=== PATIENT | female | born 1990 | race Caucasian/White ===

== ENCOUNTER 2016-08-19 09:01 | Emergency (ER) | payer OTHER ==
[~2016-08-19] VITALS: Ht 162.6 cm; Wt 109.0 kg
[~2016-08-19 09:01] MED LIST: FAMO20TA18 PO; GABA300C16 PO; MAG355OR15 PO; OXYC-284 PO; PANT20TA3 PO; PANT40TA3 PO; PERCOCET PO; SUCR1TAB56 PO
[2016-08-19 09:04] VITALS: Ht 162.6 cm; Wt 109.0 kg
[2016-08-19] MEDS ORDERED: ONDANSETRON 4 MG INJ IM STA (09:41)
[2016-08-19] MEDS ORDERED: LIDOCAINE/MYLANTA 40 ML BTL PO ONE (10:00)
[2016-08-19] MEDS ORDERED: PANTOPRAZOLE (EC) 40 MG TAB PO ONE (10:00)
[2016-08-19] MEDS ORDERED: HYDROmorphONE 1 MG/ML SYG IV STA (10:18)
[2016-08-19] MEDS ORDERED: LORAZEPAM 2 MG INJ IM ONE (10:30)
[2016-08-19 10:59] LABS: ADD SCAN DIFF NO
--- NOTE | 2016-08-19 11:06 | RADRPT ---
PROCEDURE: XR Chest. CLINICAL INDICATION: chest pain TECHNIQUE: Single frontal view of the chest was obtained COMPARISON: 11/15/2014 FINDINGS: The heart and mediastinum are within normal limits. The lungs are clear. There is no pleural effusion or pneumothorax. IMPRESSION: No definite abnormalities are identified. RPTAT:AAJJ Lance Spaulding Physician Date Time Electronically viewed and signed by Lance Spaulding Physician on 08/19/2016 11:06 CARRIE/
[2016-08-19 11:07] LABS: BASOPHIL # 0.1 10^3/ul (0.0-0.1); BASOPHILS % 0.4 % (0.0-2.0); EOSINOPHILS % 0.2 % (0.0-7.0); HEMATOCRIT 42.2 % (37.0-47.0); HEMOGLOBIN 14.3 g/dl (12.0-16.0); LYMPHOCYTES % 15.1 % (15.0-51.0); MEAN CORPUSCULAR HEMOGLOBIN 31.3 pg (29.0-33.0); MEAN CORPUSCULAR HGB CONC 33.9 g/dl (32.0-37.0); MEAN CORPUSCULAR VOLUME 92.3 fl (82.0-101.0); MEAN PLATELET VOLUME 11.7 fl (7.4-10.4); MONOCYTE # 0.5 10^3/ul (0.3-0.9); MONOCYTES % 4.1 % (0.0-11.0); NEUTROPHIL # 10.4 10^3/ul (1.6-7.5); NEUTROPHILS % 79.8 % (39.0-77.0); PLATELET COUNT 272 10^3/UL (140-415); RED BLOOD COUNT 4.57 10^6/ul (4.20-5.40); RED CELL DISTRIBUTION WIDTH 12.5 % (11.5-14.5); WHITE BLOOD COUNT 13.1 10^3/ul (4.8-10.8)
[2016-08-19 11:27] LABS: INR 1.01; PROTIME 13.3 Sec (12.2-14.2)
[2016-08-19 11:29] LABS: ALANINE AMINOTRANSFERASE 35 IU/L (13-69); ALBUMIN 4.8 g/dl (3.3-4.9); ALBUMIN/GLOBULIN RATIO 1.29; ALKALINE PHOSPHATASE 103 IU/L (42-121); ANION GAP 16 (8-16); ASPARTATE AMINO TRANSFERASE 21 IU/L (15-46); BILIRUBIN,INDIRECT 0.3 mg/dl (0-1.1); BILIRUBIN,TOTAL 0.3 mg/dl (0.2-1.3); BLOOD UREA NITROGEN 9 mg/dl (7-20); CALCIUM 9.6 mg/dl (8.4-10.2); CARBON DIOXIDE 28 mmol/L (21-31); CHLORIDE 100 mmol/L (97-110); CREATININE 0.87 mg/dl (0.44-1.00); GLUCOSE 109 mg/dl (70-220); POTASSIUM 3.8 mmol/L (3.5-5.1); SODIUM 140 mmol/L (135-144); TOTAL PROTEIN 8.5 g/dl (6.1-8.1)
[2016-08-19] MEDS ORDERED: LORAZEPAM 2 MG INJ IV ONE (11:30)
[2016-08-19 11:32] LABS: PARTIAL THROMBOPLASTIN TIME 25.6 Sec (25.0-35.0)
[2016-08-19 11:44] LABS: TROPONIN-I < 0.012 ng/ml (0.00-0.12)
[2016-08-19 12:02] LABS: ADD UMIC NO; URINE BILIRUBIN (Dip) NEGATIVE (NEGATIVE); URINE BLOOD (Dip) NEGATIVE (NEGATIVE); URINE COLOR LT. YELLOW (YELLOW); URINE GLUCOSE (Dip) NEGATIVE (NEGATIVE); URINE KETONES (Dip) NEGATIVE (NEGATIVE); URINE LEUKOCYTE ESTERASE (Dip) NEGATIVE (NEGATIVE); URINE NITRITE (Dip) NEGATIVE (NEGATIVE); URINE TOTAL PROTEIN (Dip) NEGATIVE (NEGATIVE); URINE UROBILINOGEN (Dip) 0.2 E.U./dL (0.1-1.0)
[2016-08-19] MEDS ORDERED: SOD CHLORIDE 0.9% 100 ML ONE (12:10)
[2016-08-19] MEDS ORDERED: IOHEXOL 100 ML ONE (12:10)
--- NOTE | 2016-08-19 12:34 | RADRPT ---
PROCEDURE: CTA Chest. CLINICAL INDICATION: Chest pain TECHNIQUE: The study was performed utilizing a multidetector CT scanner. Direct spiral 1 mm axial sections were obtained from the thoracic inlet to the upper abdomen with the use of 100 cc of Omnipa que 350 nonionic intravenous contrast material and reformatted at 3 mm. Coronal and sagittal reforma tions were obtained along with 3-D reconstructions. The images were reviewed on a PACS workstation. One or more of the following dose reduction techniques were used: - Automated exposure control. - Adjustment of the mA and/or kV according to patient size. Use of iterative reconstruction technique. DLP 679.2 mGycm CTDIvol 42.3 and 19.6 mGy COMPARISON: No prior studies are available for comparison. FINDINGS: The pulmonary arteries are within normal limits with no filling defects present to suggest pulmonary embolus. There is no evidence of aortic dissection. There is no cardiomegaly. There is no lung consolidation, pleural effusion, or pneumothorax. There is no suspicious nodule or mass. The airways are patent. There are no enlarged mediastinal or axillary lymph nodes. Upper abdominal structures are within normal limits. There is no acute acute osseous abnormality. IMPRESSION: No CT evidence for pulmonary embolus. There is no aortic dissection. No acute pulmonary process. RPTAT: AA .Feliciano Cotton MD, Date Time Electronically viewed and signed by .Feliciano Cotton MD, MD on 08/19/2016 12:33 .J/
[2016-08-19 13:15] VITALS: BP 120/74; PULSE 73; RESP 20; TEMP 97.7
--- NOTE | 2016-08-19 15:50 | ERD ---
ER Documentation Chief Complaint Date/Time DATE: 08/19/16 TIME: 15:45 Chief Complaint "cwp since yesterday, worse when i move my arms""seen at [facility] HPI This patient is a 26-year-old female with past medical history of chronic GERD presented to the emergency department for midsternal chest pain which is been ongoing intermittently for the past 2 days. The patient woke up this morning with 10 out of 10 chest pain. The patient has had this many times in the past. Symptoms are constant. Localized to the midsternal area with no radiation. She just recently started taking Creon prescribed by her GI specialist. She went to see the GI specialist yesterday. The pain is sharp. Pain is aggravated by spicy foods. The patient denies other symptoms currently. ROS All systems reviewed and are negative except as per history of present illness. Medications Home Meds Active Scripts Oxycodone Hcl-Acetaminophen* (Percocet*) 10-325 Mg Tablet, 1 TAB PO Q8 Y for PAIN, #10 TAB Prov:FELICIANO ABREU MD 11/16/14 Oxycodone Hcl/Acetaminophen (Percocet) 1 Tab Tab, 1 TAB PO TID, #10 TAB Prov:MARC MOREJON MD 11/15/14 Pantoprazole* (Pantoprazole*) 20 Mg Tablet.dr, 40 MG PO ONCE, #30 TAB Prov:MARC MOREJON MD 11/15/14 Famotidine* (Famotidine*) 20 Mg Tablet, 20 MG PO BID, #30 TAB Prov:MARC MOREJON MD 11/15/14 Mag Hydrox/Al Hydrox/Simeth (Maalox Max Strength Susp) 769 Ml Oral.susp, 2 TSP PO TID, #12 OZ Prov:MARC MOREJON MD 11/15/14 Reported Medications Gabapentin* (Gabapentin*) 300 Mg Capsule, 300 MG PO DAILY, CAP 11/15/14 Sucralfate* (Carafate*) 1 Gm Tab, 1 GM PO AC MEALS AND BEDTIME, TAB 11/15/14 Pantoprazole* (Protonix*) 40 Mg Tablet.dr, 40 MG PO DAILY, TAB 11/15/14 Allergies Allergies: Coded Allergies: No Known Allergy (Unverified , 11/15/14) PMhx/Soc History of Surgery: Yes (gallbladder removed) Hx Psychiatric Problems: Yes (depression) Hx Alcohol Use: No Hx Substance Use: No Hx Tobacco Use: No Smoking Status: Unknown if ever smoked FmHx Noncontributory for chief complaint Physical Exam Vitals Vital Signs Date Time Temp Pulse Resp B/P Pulse Ox O2 Delivery O2 Flow Rate FiO2 08/19/16 13:15 97.7 73 20 120/74 99 Room Air 08/19/16 12:09 77 16 102/62 97 Room Air 08/19/16 11:21 65 24 141/84 96 Room Air 08/19/16 10:16 124/83 08/19/16 10:14 148/89 08/19/16 09:04 97.8 97 18 130/76 97 Physical Exam Const: The patient is tearful and appears to be in acute pain. Head: Atraumatic Eyes: Normal Conjunctiva ENT: Normal External Ears, Nose and Mouth. Neck: Full range of motion..~ No meningismus. Resp: Clear to auscultation bilaterally Cardio: Regular rate and rhythm, no murmurs Abd: Soft, non tender, non distended. Normal bowel sounds Skin: No petechiae or rashes Back: No midline or flank tenderness Ext: No cyanosis, or edema Neur: Awake and alert Psych: Normal Mood and Affect Result Diagram: 08/19/16 1040 08/19/16 1040 Results 24 hrs Laboratory Tests Test 08/19/16 10:40 08/19/16 10:58 White Blood Count 13.110^3/ul Red Blood Count 4.5710^6/ul Hemoglobin 14.3g/dl Hematocrit 42.2% Mean Corpuscular Volume 92.3fl Mean Corpuscular Hemoglobin 31.3pg Mean Corpuscular Hemoglobin Concent 33.9g/dl Red Cell Distribution Width 12.5% Platelet Count 17130^3/UL Mean Platelet Volume 11.7fl Neutrophils % 79.8% Lymphocytes % 15.1% Monocytes % 4.1% Eosinophils % 0.2% Basophils % 0.4% Nucleated Red Blood Cells % 0.0/100WBC Neutrophils # 10.410^3/ul Lymphocytes # 2.010^3/ul Monocytes # 0.510^3/ul Eosinophils # 0.010^3/ul Basophils # 0.110^3/ul Nucleated Red Blood Cells # 0.010^3/ul Prothrombin Time 13.3Sec Prothrombin Time Ratio 1.0 INR International Normalized Ratio 1.01 Activated Partial Thromboplast Time 25.6Sec Sodium Level 140mmol/L Potassium Level 3.8mmol/L Chloride Level 100mmol/L Carbon Dioxide Level 28mmol/L Anion Gap 16 Blood Urea Nitrogen 9mg/dl Creatinine 0.87mg/dl Glucose Level 109mg/dl Calcium Level 9.6mg/dl Total Bilirubin 0.3mg/dl Direct Bilirubin 0.00mg/dl Indirect Bilirubin 0.3mg/dl Aspartate Amino Transf (AST/SGOT) 21IU/L Alanine Aminotransferase (ALT/SGPT) 35IU/L Alkaline Phosphatase 103IU/L Troponin I < 0.012ng/ml Total Protein 8.5g/dl Albumin 4.8g/dl Globulin 3.70g/dl Albumin/Globulin Ratio 1.29 Lipase 62U/L Urine Color LT. YELLOW Urine Clarity CLEAR Urine pH 6.5 Urine Specific [place] 1.020 Urine Ketones NEGATIVE Urine Nitrite NEGATIVE Urine Bilirubin NEGATIVE Urine Urobilinogen 0.2 E.U./dL Urine Leukocyte Esterase NEGATIVE Urine Hemoglobin NEGATIVE Urine Glucose NEGATIVE% Urine Total Protein NEGATIVE Current Medications Medications (Trade) Dose Ordered Sig/Renetta Route PRN Reason Start Time Stop Time Status Last Admin Dose Admin Ondansetron HCl (Zofran Inj) 4 mg ONCE STAT IM 08/19/16 09:41 08/19/16 10:26 DC 08/19/16 09:59 Miscellaneous Medication (Gi Cocktail (2)) 40 ml ONCE ONCE PO 08/19/16 10:00 08/19/16 10:01 DC Pantoprazole (Protonix Tab) 40 mg ONCE ONCE PO 08/19/16 10:00 08/19/16 10:26 DC Lorazepam (Ativan) 1 mg ONCE ONCE IM 08/19/16 10:30 08/19/16 11:08 DC Hydromorphone HCl (Dilaudid) 1 mg ONCE STAT IV 08/19/16 10:18 08/19/16 10:23 DC 08/19/16 10:37 Lorazepam 1 mg 1 mg ONCE ONCE IV 08/19/16 11:30 08/19/16 11:31 DC 08/19/16 11:11 Iohexol 100 ml @ ud STK-MED ONCE .ROUTE 08/19/16 12:10 08/19/16 12:11 DC 08/19/16 12:20 Sodium Chloride (NS) 100 ml @ ud STK-MED ONCE .ROUTE 08/19/16 12:10 08/19/16 12:11 DC 08/19/16 12:20 PROCEDURE: CTA Chest. CLINICAL INDICATION: Chest pain TECHNIQUE: The study was performed utilizing a multidetector CT scanner. Direct spiral 1 mm axial sections were obtained from the thoracic inlet to the upper abdomen with the use of 100 cc of Omnipaque 350 nonionic intravenous contrast material and reformatted at 3 mm. Coronal and sagittal reformations were obtained along with 3-D reconstructions. The images were reviewed on a PACS workstation. One or more of the following dose reduction techniques were used: - Automated exposure control. - Adjustment of the mA and/or kV according to patient size. Use of iterative reconstruction technique. DLP 679.2 mGycm CTDIvol 42.3 and 19.6 mGy COMPARISON: No prior studies are available for comparison. FINDINGS: The pulmonary arteries are within normal limits with no filling defects present to suggest pulmonary embolus. There is no evidence of aortic dissection. There is no cardiomegaly. There is no lung consolidation, pleural effusion, or pneumothorax. There is no suspicious nodule or mass. The airways are patent. There are no enlarged mediastinal or axillary lymph nodes. Upper abdominal structures are within normal limits. There is no acute acute osseous abnormality. IMPRESSION: No CT evidence for pulmonary embolus. There is no aortic dissection. No acute pulmonary process. RPTAT: AA .Feliciano Cotton MD, MD Date Time Electronically viewed and signed by .Feliciano Cotton MD, MD on 08/19/2016 12:33 .J/ CC: YULIANA BURDEN PA-C PROCEDURE: XR Chest. CLINICAL INDICATION: chest pain TECHNIQUE: Single frontal view of the chest was obtained COMPARISON: 11/15/2014 FINDINGS: The heart and mediastinum are within normal limits. The lungs are clear. There is no pleural effusion or pneumothorax. IMPRESSION: No definite abnormalities are identified. RPTAT:AAJJ Lance Spaulding Physician Date Time Electronically viewed and signed by Lance Spaulding Physician on 08/19/2016 11: 06 MC/ CC: YULIANA BURDEN PA-C Procedures/[facility] EMERGENCY DEPARTMENT COURSE / MEDICAL DECISION MAKING: This is a 26-year-old female who comes to the emergency room secondary to complaints of midsternal chest pain. The patient was given IV Dilaudid, IV Ativan in the department. On re-evaluation , the patient was feeling significantly improved. Lab results reviewed and showed no significant acute abnormalities. Urine was negative for infection or other abnormalities. Radiology: Negative for any acute abnormalities including pulmonary embolism and aortic dissection. EKG: Interpreted by ED physician Rate/Rhythm: Normal sinus rhythm with a rate of 62 bpm QRS, ST, T-waves: No changes consistent w/ acute ischemia Impression: No evidence of ischemia or arrhythmia The primary diagnosis is acid reflux. I have low suspicion for aortic dissection, pulmonary embolism, pneumothorax, bronchitis, pneumonia, [place] tear, or other emergent conditions at this time. Discharge: I have discussed the lab results and diagnostic findings with the patient and answered any questions or concerns. I had a long discussion with the patient and her parents regarding her diagnostic testing results. The patient was advised to followup with their PMD in 1-2 days and to return to the Emergency Department if there are any new or worsening symptoms. The patient understood and agreed with the diagnosis, treatment and plan. The patient is stable for discharge at this time. I discussed this case with Dr. Antony Benton , he was informed of the history, physical examination, medical decision making , assessment, and plan and he agreed with the overall ED course. Departure Diagnosis: Primary Impression: Acid reflux Condition: Fair Patient Instructions: Gerd (Adult) Referrals: COMM[facility]ITY CLIN[facility] YOU HAVE RECEIVED A MEDICAL SCREENING EXAM AND THE RESULTS INDICATE THAT YOU DO NOT HAVE A CONDITION THAT REQUIRES URGENT TREATMENT IN THE EMERGENCY DEPARTMENT. FURTHER EVALUATION AND TREATMENT OF YOUR CONDITION CAN WAIT UNTIL YOU ARE SEEN IN YOUR DOCTORS OFFICE WITHIN THE NEXT 1-2 DAYS. IT IS YOUR RESPONSIBILITY TO MAKE AN APPOINTMENT FOR FOLOW-UP CARE. IF YOU HAVE A PRIMARY DOCTOR --you should call your primary doctor and schedule an appointment IF YOU DO NOT HAVE A PRIMARY DOCTOR YOU CAN CALL OUR PHYSICIAN REFERRAL HOTLINE AT IF YOU CAN NOT AFFORD TO SEE A PHYSICIAN YOU CAN CHOSE FROM THE FOLLOWING [facility] CLINICS [facility] [address] [facility] [address] [facility] [address] [facility] [address] [facility] [address] [facility] [facility] [address] Additional Instructions: Follow up with your PCP within the next 1-3 days for a more thorough evaluation and a possible referral to a specialist. Return the the emergency department immediately if symptoms worsen or change. If you have any questions regarding medications, ask your pharmacist or us before you leave. If any adverse reactions, occur while taking your medications, discontinue the treatment and return to the emergency department immediately. If any new or worsening symptoms, uncontrolled fevers, or other unexplained symptoms occur, return to the emergency department immediately. Take your medications as directed, and complete the entire course of treatment. YULIANA BURDEN PA-C August 19, 2016 15:50
== END 2016-08-19 13:20 | disposition home or self-care (01) ==
LOC: FTE 09:01
DX: K21.9 Gastro-esophageal reflux disease without esophagitis (principal)
CPT/HCPCS: 71010; 71275; 80053; 81003; 83690; 84484; 85025; 85610; 85730; 93005; J1170; J2060; J2405; Q9967; 36415; 96372; 96374; 96375

== ENCOUNTER 2016-08-26 07:47 | Emergency (ER) | payer BC ==
[~2016-08-26] VITALS: Ht 167.6 cm; Wt 100.0 kg
[2016-08-26 07:50] VITALS: Ht 167.6 cm; Wt 100.0 kg
[2016-08-26] MEDS ORDERED: LIDOCAINE 2% VISC 15 ML CUP PO ONE (08:00)
[2016-08-26] MEDS ORDERED: ONDANSETRON 4 MG INJ IV STA ×2 (08:00→08:19)
[2016-08-26] MEDS ORDERED: HYDROmorphONE 1 MG/ML SYG IV STA ×2 (08:00→08:19)
[2016-08-26] MEDS ORDERED: LORAZEPAM 2 MG INJ IV ONE (08:30)
[2016-08-26] MEDS ORDERED: HYDROmorphONE 2 MG/ML SYG IV STA (08:47)
[2016-08-26] MEDS ORDERED: NITROGLYCERIN (SL) 0.4 MG TAB SL PRN (09:00)
--- NOTE | 2016-08-26 09:00 | ERA ---
ER Documentation Chief Complaint Date/Time DATE: 08/26/16 TIME: 08:58 Chief Complaint ap/ cp/epigastric pain, dc fron cristi hawkins yesterday HPI This is a 26-year-old female who was just discharged from [facility] yesterday after a nearly a week stay. The patient was diagnosed with gastroparesis after an emptying study was done as well as severe reflux. Patient was sent home on Protonix and other medications. The parents wanted the patient to stay longer but they refused to keep her there in the hospital. The parents were concerned because she kept having pain. The patient is complaining of pain in the upper sternal region where she says she has her "attacks". Patient's had 2 episodes of vomiting was nonbilious and nonbilious. Patient extremely anxious. ROS All systems reviewed and are negative except as per history of present illness. Medications Home Meds Active Scripts Lidocaine (Lidocaine Viscous) 100 Ml Soln, 15 ML MM Q4, #200 ML Prov:SATHISH ORDOÑEZ DO 08/26/16 Hydrocodone Bit-Acetaminophen* (Lortab* Liq) 7.5 Mg-325 Mg/15 Ml Solution, 15 ML PO Q6H Y for PAIN, #150 ML Prov:SATHISH ORDOÑEZ DO 08/26/16 Oxycodone Hcl-Acetaminophen* (Percocet*) 10-325 Mg Tablet, 1 TAB PO Q8 Y for PAIN, #10 TAB Prov:FELICIANO ABREU MD 11/16/14 Oxycodone Hcl/Acetaminophen (Percocet) 1 Tab Tab, 1 TAB PO TID, #10 TAB Prov:MARC MOREJON MD 11/15/14 Pantoprazole* (Pantoprazole*) 20 Mg Tablet.dr, 40 MG PO ONCE, #30 TAB Prov:MARC MOREJON MD 11/15/14 Famotidine* (Famotidine*) 20 Mg Tablet, 20 MG PO BID, #30 TAB Prov:MARC MOREJON MD 11/15/14 Mag Hydrox/Al Hydrox/Simeth (Maalox Max Strength Susp) 769 Ml Oral.susp, 2 TSP PO TID, #12 OZ Prov:MARC MOREJON MD 11/15/14 Reported Medications Ondansetron Hcl* (Zofran*) 4 Mg Tab, 4 MG PO Q4H Y for NAUSEA AND OR VOMITING, TAB 08/26/16 Sucralfate* (Carafate*) 1 Gm Tab, 2 GM PO AC MEALS AND BEDTIME, TAB 11/15/14 Pantoprazole* (Protonix*) 40 Mg Tablet.dr, 40 MG PO DAILY, TAB 11/15/14 Discontinued Reported Medications Gabapentin* (Gabapentin*) 300 Mg Capsule, 300 MG PO DAILY, CAP 11/15/14 Allergies Allergies: Coded Allergies: No Known Allergy (Unverified , 11/15/14) PMhx/Soc History of Surgery: Yes (gallbladder removed) Hx Psychiatric Problems: Yes (depression) Hx Alcohol Use: No Hx Substance Use: No Hx Tobacco Use: No FmHx Family History: No coronary disease Physical Exam Vitals Vital Signs Date Time Temp Pulse Resp B/P Pulse Ox O2 Delivery O2 Flow Rate FiO2 08/26/16 07:50 98.1 113 28 174/104 99 Physical Exam Const: Well-developed, well-nourished Head: Atraumatic, normocephalic Eyes: Normal Conjunctiva, PERRLA, EOMI, normal sclera, no nystagmus ENT: Normal External Ears, Nose and Mouth, moist mucus membranes. Neck: Full range of motion. No meningismus, no lymphadenopathy. Resp: Clear to auscultation bilaterally, no wheezing, rhonchi, rales Cardio: Regular rate and rhythm, no murmurs, S1 S2 present Abd: Soft, non tender x 4, non distended. Normal bowel sounds, no guarding or rebound, no pulsitile abdominal masses or bruits Skin: No petechiae or rashes, no ecchymosis , no maculopapular rash Back: No midline or flank tenderness Ext: No cyanosis, or edema, FROM x 4, normal inspection, neurovascularly intact x 4 Neur: Awake and alert, STR 5/5 x 4, sensation intact x 4, no focal findings, cerebellum intact Psych: Extremely anxious Results 24 hrs Current Medications Medications (Trade) Dose Ordered Sig/Renetta Route PRN Reason Start Time Stop Time Status Last Admin Dose Admin Hydromorphone HCl (Dilaudid) 1 mg ONCE STAT IV 08/26/16 08:00 08/26/16 08:02 DC 08/26/16 08:31 Ondansetron HCl (Zofran Inj) 4 mg ONCE STAT IV 08/26/16 08:00 08/26/16 08:02 DC 08/26/16 08:31 Lidocaine (Xylocaine (Viscous)) 30 ml ONCE ONCE PO 08/26/16 08:00 08/26/16 08:02 DC 08/26/16 08:32 Hydromorphone HCl (Dilaudid) 1 mg ONCE STAT IV 08/26/16 08:19 08/26/16 08:20 DC 08/26/16 08:19 Ondansetron HCl (Zofran Inj) 4 mg ONCE STAT IV 08/26/16 08:19 08/26/16 08:20 DC 08/26/16 10:07 Lorazepam (Ativan) 1 mg ONCE ONCE IV 08/26/16 08:30 08/26/16 08:31 DC 08/26/16 09:09 Nitroglycerin (Nitroglycerin (Sl Tab) 0.4 Mg) 1 tab Q5M UP TO 3 DOSES PRN SL CHEST PAIN 08/26/16 09:00 Hydromorphone HCl 2 mg 2 mg ONCE STAT IV 08/26/16 08:47 08/26/16 08:48 DC 08/26/16 09:09 Sodium Chloride (NS) 1,000 ml @ 1,000 mls/hr Q1H STAT IV 08/26/16 09:23 08/26/16 10:22 DC 08/26/16 10:07 Procedures/MDM After Dilaudid was given and viscous lidocaine and some Ativan the patient is now completely comfortable. She is not having any vomiting her pain is controlled. I contacted a colleague at [facility] in the GI department and let him know about her calling the office and to recheck her tomorrow to schedule an appointment for follow-up Discharge with Lortab elixir and viscous lidocaine Departure Diagnosis: Primary Impression: Acid reflux Qualified Code: K21.9 - Gastroesophageal reflux disease, esophagitis presence not specified Additional Impression: Gastroparesis Condition: Stable SATHISH ORDOÑEZ DO August 26, 2016 09:00
[2016-08-26] MEDS ORDERED: SOD CHLORIDE 0.9% 1,000 ML IV STA (09:23)
[2016-08-26] MEDS ORDERED: ONDA-43 PO (11:43)
[2016-08-26] MEDS ORDERED: HYDR15SO8 PO (11:46)
[2016-08-26] MEDS ORDERED: LIDO20SO19 MM (11:46)
[2016-08-26 12:13] VITALS: BP 113/69; PULSE 70; RESP 18; TEMP 97.9
== END 2016-08-26 15:29 | disposition home or self-care (01) ==
LOC: E/R 07:47
DX: K21.9 Gastro-esophageal reflux disease without esophagitis (principal); R40.2252 Coma scale, best verbal response, oriented, at arrival to emergency department; K31.84 Gastroparesis; R40.2142 Coma scale, eyes open, spontaneous, at arrival to emergency department; R40.2362 Coma scale, best motor response, obeys commands, at arrival to emergency department
CPT/HCPCS: 96374; 96375; 96376; 99284; J1170; J2060; J2405; J7030

== ENCOUNTER 2016-08-28 08:39 | Inpatient (IN) | payer BC ==
[~2016-08-28] VITALS: Ht 170.2 cm; Wt 104.5 kg
[~2016-08-28 08:39] MED LIST changes: -GABA300C16 PO; +HYDR15SO8 PO; +LIDO20SO19 MM; +ONDA-43 PO
[2016-08-28 08:47] VITALS: Ht 170.2 cm; Wt 104.5 kg
[2016-08-28] MEDS ORDERED: SOD CHLORIDE 0.9% 1,000 ML IV STA (09:02)
[2016-08-28] MEDS ORDERED: HYDROmorphONE 1 MG/ML SYG IV STA (09:02)
[2016-08-28] MEDS ORDERED: ONDANSETRON 4 MG INJ IV STA (09:02)
[2016-08-28] MEDS ORDERED: HALOPERIDOL 5 MG INJ IM ONE (09:30)
[2016-08-28 09:46] LABS: ADD SCAN DIFF NO
[2016-08-28 09:49] LABS: ADD UMIC YES; URINE BILIRUBIN (Dip) NEGATIVE (NEGATIVE); URINE BLOOD (Dip) TRACE (NEGATIVE); URINE COLOR LT. YELLOW (YELLOW); URINE GLUCOSE (Dip) NEGATIVE (NEGATIVE); URINE KETONES (Dip) TRACE (NEGATIVE); URINE LEUKOCYTE ESTERASE (Dip) TRACE (NEGATIVE); URINE NITRITE (Dip) NEGATIVE (NEGATIVE); URINE TOTAL PROTEIN (Dip) TRACE (NEGATIVE); URINE UROBILINOGEN (Dip) 0.2 E.U./dL (0.1-1.0)
[2016-08-28 09:51] LABS: BASOPHILS % 0.3 % (0.0-2.0); EOSINOPHILS # 0.1 10^3/ul (0.0-0.5); EOSINOPHILS % 0.4 % (0.0-7.0); HEMATOCRIT 42.1 % (37.0-47.0); HEMOGLOBIN 14.4 g/dl (12.0-16.0); LYMPHOCYTES # 2.6 10^3/ul (0.8-2.9); LYMPHOCYTES % 17.9 % (15.0-51.0); MEAN CORPUSCULAR HEMOGLOBIN 31.5 pg (29.0-33.0); MEAN CORPUSCULAR HGB CONC 34.2 g/dl (32.0-37.0); MEAN CORPUSCULAR VOLUME 92.1 fl (82.0-101.0); MONOCYTE # 0.7 10^3/ul (0.3-0.9); NEUTROPHIL # 11.2 10^3/ul (1.6-7.5); PLATELET COUNT 264 10^3/UL (140-415); RED BLOOD COUNT 4.57 10^6/ul (4.20-5.40); RED CELL DISTRIBUTION WIDTH 12.9 % (11.5-14.5); WHITE BLOOD COUNT 14.7 10^3/ul (4.8-10.8)
[2016-08-28] MEDS ORDERED: ACETAMINOPHEN 325 MG TAB PO PRN ×2 (10:00→12:00)
[2016-08-28] MEDS ORDERED: ONDANSETRON 4 MG INJ IV PRN ×2 (10:00→12:00)
--- NOTE | 2016-08-28 10:03 | ERA ---
ER Documentation Chief Complaint Date/Time DATE: 08/28/16 TIME: 10:02 Chief Complaint HAS EPIGASTRIC PAIN N/V HPI Patient is a 26-year-old female with gastroparesis who presents with chest pain and abdominal pain. She says "I have GERD and gastroparesis". She said this started a few weeks ago. She said that she was just recently hospitalized at [facility] and was recently discharged on Saturday. Upon review of old medical records this is the patient's third visit to the ER for the same complaint since August 19. This is her fourth visit since 2014. Review of the emergency department information exchange shows visits to 2 separate emergency departments. She does not currently have a primary doctor. ROS All systems reviewed and are negative except as per history of present illness. Medications Home Meds Active Scripts Lidocaine (Lidocaine Viscous) 100 Ml Soln, 15 ML MM Q4, #200 ML Prov:SATHISH ORDOÑEZ DO 08/26/16 Hydrocodone Bit-Acetaminophen* (Lortab* Liq) 7.5 Mg-325 Mg/15 Ml Solution, 15 ML PO Q6H Y for PAIN, #150 ML Prov:SATHISH ORDOÑEZ DO 08/26/16 Oxycodone Hcl-Acetaminophen* (Percocet*) 10-325 Mg Tablet, 1 TAB PO Q8 Y for PAIN, #10 TAB Prov:FELICIANO ABREU MD 11/16/14 Oxycodone Hcl/Acetaminophen (Percocet) 1 Tab Tab, 1 TAB PO TID, #10 TAB Prov:MARC MOREJON MD 11/15/14 Pantoprazole* (Pantoprazole*) 20 Mg Tablet.dr, 40 MG PO ONCE, #30 TAB Prov:MARC MOREJON MD 11/15/14 Famotidine* (Famotidine*) 20 Mg Tablet, 20 MG PO BID, #30 TAB Prov:MARC MOREJON MD 11/15/14 Mag Hydrox/Al Hydrox/Simeth (Maalox Max Strength Susp) 769 Ml Oral.susp, 2 TSP PO TID, #12 OZ Prov:MARC MOREJON MD 11/15/14 Reported Medications Ondansetron Hcl* (Zofran*) 4 Mg Tab, 4 MG PO Q4H Y for NAUSEA AND OR VOMITING, TAB 08/26/16 Sucralfate* (Carafate*) 1 Gm Tab, 2 GM PO AC MEALS AND BEDTIME, TAB 11/15/14 Discontinued Reported Medications Pantoprazole* (Protonix*) 40 Mg Tablet.dr, 40 MG PO DAILY, TAB 11/15/14 Gabapentin* (Gabapentin*) 300 Mg Capsule, 300 MG PO DAILY, CAP 11/15/14 Allergies Allergies: Coded Allergies: No Known Allergy (Unverified , 11/15/14) PMhx/Soc Positive for gastroparesis History of Surgery: No Anesthesia Reaction: No Hx Neurological Disorder: No Hx Respiratory Disorders: No Hx Cardiac Disorders: No Hx Psychiatric Problems: No Hx Miscellaneous Medical Probl: No Hx Alcohol Use: No Hx Substance Use: No Hx Tobacco Use: No FmHx Family History: No diabetes Physical Exam Vitals Vital Signs Date Time Temp Pulse Resp B/P Pulse Ox O2 Delivery O2 Flow Rate FiO2 08/28/16 08:47 99.4 110 18 147/100 96 Physical Exam Const: Moderate distress secondary to pain Head: Atraumatic Eyes: Normal Conjunctiva ENT: Normal External Ears, Nose and Mouth. Neck: Full range of motion..~ No meningismus. Resp: Clear to auscultation bilaterally Cardio: Regular rate and rhythm, no murmurs Abd: Diffuse tenderness to palpation without rebound or guarding Skin: No petechiae or rashes Back: No midline or flank tenderness Ext: No cyanosis, or edema Neur: Awake and alert, patient is shaking from her pain Result Diagram: 08/28/1692908/28/1630 Results 24 hrs Laboratory Tests Test 08/28/16 09:30 White Blood Count 14.710^3/ul Red Blood Count 4.5710^6/ul Hemoglobin 14.4g/dl Hematocrit 42.1% Mean Corpuscular Volume 92.1fl Mean Corpuscular Hemoglobin 31.5pg Mean Corpuscular Hemoglobin Concent 34.2g/dl Red Cell Distribution Width 12.9% Platelet Count 59061^3/UL Mean Platelet Volume 12.0fl Neutrophils % 76.0% Lymphocytes % 17.9% Monocytes % 5.0% Eosinophils % 0.4% Basophils % 0.3% Nucleated Red Blood Cells % 0.0/100WBC Neutrophils # 11.210^3/ul Lymphocytes # 2.610^3/ul Monocytes # 0.710^3/ul Eosinophils # 0.110^3/ul Basophils # 0.010^3/ul Nucleated Red Blood Cells # 0.010^3/ul Prothrombin Time 13.1Sec Prothrombin Time Ratio 1.0 INR International Normalized Ratio 0.99 Activated Partial Thromboplast Time 26.4Sec Urine Color LT. YELLOW Urine Clarity CLEAR Urine pH 7.0 Urine Specific [place] 1.020 Urine Ketones TRACE Urine Nitrite NEGATIVE Urine Bilirubin NEGATIVE Urine Urobilinogen 0.2 E.U./dL Urine Leukocyte Esterase TRACE Urine Microscopic RBC 0-2/HPF Urine Microscopic WBC 2-5/HPF Urine Squamous Epithelial Cells MODERATE Urine Bacteria MODERATE Urine Mucus FEW Urine Hemoglobin TRACE Urine Glucose NEGATIVE% Urine Total Protein TRACE Sodium Level 139mmol/L Potassium Level 3.9mmol/L Chloride Level 102mmol/L Carbon Dioxide Level 24mmol/L Anion Gap 17 Blood Urea Nitrogen 8mg/dl Creatinine 0.96mg/dl Glucose Level 134mg/dl Calcium Level 9.7mg/dl Total Bilirubin 0.5mg/dl Direct Bilirubin 0.00mg/dl Indirect Bilirubin 0.5mg/dl Aspartate Amino Transf (AST/SGOT) 21IU/L Alanine Aminotransferase (ALT/SGPT) 34IU/L Alkaline Phosphatase 99IU/L Troponin I < 0.012ng/ml Total Protein 8.4g/dl Albumin 4.7g/dl Globulin 3.70g/dl Albumin/Globulin Ratio 1.27 Lipase 61U/L Current Medications Medications (Trade) Dose Ordered Sig/Renetta Route PRN Reason Start Time Stop Time Status Last Admin Dose Admin Sodium Chloride (NS) 1,000 ml @ 1,000 mls/hr Q1H STAT IV 08/28/16 09:02 08/28/16 10:01 DC 08/28/16 09:38 Hydromorphone HCl (Dilaudid) 1 mg ONCE STAT IV 08/28/16 09:02 08/28/16 09:03 DC 08/28/16 09:37 Ondansetron HCl (Zofran Inj) 4 mg ONCE STAT IV 08/28/16 09:02 08/28/16 09:03 DC 08/28/16 09:37 Haloperidol (Haldol) 5 mg ONCE ONCE IM 08/28/16 09:30 08/28/16 09:31 DC 08/28/16 09:37 Procedures/MDM EKG read by me: Rate/Rhythm: Regular rate and rhythm at a rate of 69 Intervals: Normal Impression: No evidence of ischemia or arrhythmia Smoking Cessation Therapy: Pt. was lectured for greater than 3 minutes on the health risks of continued smoking and the benefits of cessation. Patient is a 26-year-old female presents with acute abdominal pain with gastroparesis. The patient will need admission as this is her third visit for similar complaint. She was given Haldol, Dilaudid, and Ativan which is helped her symptoms. She will be admitted to the care of Dr. Murphy from the panel team. She will likely need GI consultation. She says that she needs to get an abdominal pacemaker placed for her gastroparesis per her doctor from the recent admission. I doubt appendicitis, cholecystitis, pink otitis, or bowel obstruction. I believe the risks of doing a CT scan of the abdomen and pelvis outweigh the benefits as she recently had 2 CT scans. Departure Diagnosis: Primary Impression: Gastroparesis Additional Impression: Epigastric pain Condition: FELICIANO Babin MD August 28, 2016 10:02
[2016-08-28 10:04] LABS: ALANINE AMINOTRANSFERASE 34 IU/L (13-69); ALBUMIN 4.7 g/dl (3.3-4.9); ALBUMIN/GLOBULIN RATIO 1.27; ALKALINE PHOSPHATASE 99 IU/L (42-121); ANION GAP 17 (8-16); ASPARTATE AMINO TRANSFERASE 21 IU/L (15-46); BILIRUBIN,INDIRECT 0.5 mg/dl (0-1.1); BILIRUBIN,TOTAL 0.5 mg/dl (0.2-1.3); BLOOD UREA NITROGEN 8 mg/dl (7-20); CALCIUM 9.7 mg/dl (8.4-10.2); CARBON DIOXIDE 24 mmol/L (21-31); CHLORIDE 102 mmol/L (97-110); CREATININE 0.96 mg/dl (0.44-1.00); GLUCOSE 134 mg/dl (70-220); POTASSIUM 3.9 mmol/L (3.5-5.1); SODIUM 139 mmol/L (135-144); TOTAL PROTEIN 8.4 g/dl (6.1-8.1)
[2016-08-28 10:06] LABS: BACTERIA,URINE MODERATE; MUCUS,URINE FEW; SQUAMOUS EPITHELIAL CELL,UR MODERATE; URINE RBCS 0-2 /HPF (0)
[2016-08-28 10:13] LABS: INR 0.99; PROTIME 13.1 Sec (12.2-14.2)
[2016-08-28 10:14] LABS: PARTIAL THROMBOPLASTIN TIME 26.4 Sec (25.0-35.0)
[2016-08-28 10:17] LABS: TROPONIN-I < 0.012 ng/ml (0.00-0.12)
[2016-08-28 10:41] VITALS: PULSE 81; TEMP 98.3
[2016-08-28] MEDS ORDERED: LORAZEPAM 2 MG INJ IV ONE (11:00)
[2016-08-28] MEDS ORDERED: BISACODYL 10 MG SUPP PR PRN (12:00)
[2016-08-28] MEDS ORDERED: NACL 0.9% 3 ML SYG IV SCH (12:00)
[2016-08-28] MEDS ORDERED: ACETAMINOPHEN 650 MG SUPP PR PRN (12:00)
[2016-08-28] MEDS ORDERED: MAGNESIUM HYDROXIDE 30ML CUP PO PRN (12:00)
[2016-08-28] MEDS ORDERED: DOCUSATE SODIUM 100 MG CAP PO PRN (12:00)
[2016-08-28] MEDS ORDERED: HYDROCODONE/APAP (5/325) TAB PO PRN ×2 (12:00)
[2016-08-28 12:01] VITALS: BP 106/62; RESP 18
[2016-08-28] MEDS: D5W-0.45 NACL + KCL 20 MEQ 1,000 ML IV SCH (12:59)
--- NOTE | 2016-08-28 14:32 | CONS ---
Date/Time of Note Date/Time of Note DATE: 08/28/16 TIME: 14:17 Assessment/Plan Assessment/Plan Additional Assessment/Plan Assessment * Abdominal pain r/o GERD vs PUD * History of EGD?gastroparesis ([facility]) Plan * Secure old records from [facility] * EGD risks and benefit explained to patient agreed with the planned procedure * PPI * reglan 10 mg qid Consultation Date/Type/Reason Admit Date/Time August 28, 2016 at 09:35 Date of Consultation: August 28, 2016 Type of Consultation: Gastroenterolgy Reason for Consultation Gastroparesis Referring Provider: KENNY SIMMONS Hx of Present Illness 26 year old female who was brought to emergency room with chief complaint of abdominal pain and chest pain..Patient had been hospitalized at [facility] where an EGD performed revealed gastroparesis,Patient was discharged and subsequently went to our er last August diagnosed as having GERD.She was discharged only to come back today because of abdominal pain crampy localized at epigastric area with associated nausea and vomiting. Emergency room course CT chest No CT evidence for pulmonary embolus. There is no aortic dissection.No acute pulmonary process. subsequent examination on the floor,no complaints of abdominal pain.I have spoken with the father to explore the possibility of doing EGD but ,father wants to secure records from previous hospital. Constitutional: improved, no complaints Eyes: no complaints ENT: no complaints Respiratory: no complaints Cardiovascular: no complaints Gastrointestinal: flatus, pain, vomiting, No constipation Genitourinary: no complaints Musculoskeletal: no complaints Skin: no complaints Neurologic: no complaints Endocrine: no complaints Lymphatic: no complaints Psychological: nl mood/affect, no complaints Immunologic: no complaints Past Medical History Medical History: no pertinent history Past Surgical History Past Surgical Hx: no surgical history Family History Significant Family History: no pertinent family hx Social History Smoking Status: Current every day smoker Drug Use: marijuana Exam/Review of Systems Vital Signs Vitals Vital Signs Date Time Temp Pulse Resp B/P Pulse Ox O2 Delivery O2 Flow Rate FiO2 08/28/16 12:01 98.2 62 18 106/62 95 08/28/16 10:41 Room Air Exam Constitutional: alert, oriented Head: normocephalic ENMT: mucosa pink and moist, nl nasal mucosa & septum Neck: non-tender, supple Respiratory: clear to auscultation, normal air movement Cardiovascular: nl pulses, regular rate and rhythm Gastrointestinal: non-tender, soft Genitourinary - Female: nl adnexae Musculoskeletal: nl extremities to inspection Extremities: normal pulses Neurological: nl mental status, nl speech, nl strength Skin: nl turgor Lymph: nl lymph nodes Results Result Diagram: 08/28/16 0930 08/28/16 0930 Results 24 hrs Laboratory Tests Test 08/28/16 09:30 White Blood Count 14.7 H Red Blood Count 4.57 Hemoglobin 14.4 Hematocrit 42.1 Mean Corpuscular Volume 92.1 Mean Corpuscular Hemoglobin 31.5 Mean Corpuscular Hemoglobin Concent 34.2 Red Cell Distribution Width 12.9 Platelet Count 264 Mean Platelet Volume 12.0 H Neutrophils % 76.0 Lymphocytes % 17.9 Monocytes % 5.0 Eosinophils % 0.4 Basophils % 0.3 Nucleated Red Blood Cells % 0.0 Neutrophils # 11.2 H Lymphocytes # 2.6 Monocytes # 0.7 Eosinophils # 0.1 Basophils # 0.0 Nucleated Red Blood Cells # 0.0 Prothrombin Time 13.1 Prothrombin Time Ratio 1.0 INR International Normalized Ratio 0.99 Activated Partial Thromboplast Time 26.4 Urine Color LT. YELLOW Urine Clarity CLEAR Urine pH 7.0 Urine Specific [place] 1.020 Urine Ketones TRACE H Urine Nitrite NEGATIVE Urine Bilirubin NEGATIVE Urine Urobilinogen 0.2 E.U./dL Urine Leukocyte Esterase TRACE H Urine Microscopic RBC 0-2 Urine Microscopic WBC 2-5 Urine Squamous Epithelial Cells MODERATE Urine Bacteria MODERATE Urine Mucus FEW Urine Hemoglobin TRACE Urine Glucose NEGATIVE Urine Total Protein TRACE Sodium Level 139 Potassium Level 3.9 Chloride Level 102 Carbon Dioxide Level 24 Anion Gap 17 H Blood Urea Nitrogen 8 Creatinine 0.96 Glucose Level 134 Calcium Level 9.7 Total Bilirubin 0.5 Direct Bilirubin 0.00 Indirect Bilirubin 0.5 Aspartate Amino Transf (AST/SGOT) 21 Alanine Aminotransferase (ALT/SGPT) 34 Alkaline Phosphatase 99 Troponin I < 0.012 Total Protein 8.4 H Albumin 4.7 Globulin 3.70 H Albumin/Globulin Ratio 1.27 Lipase 61 Medications Medications Current Medications Potassium Chloride/Dextrose/ Sod Cl (D5-1/2ns + KCl 20 Meq) 1,000 ml @ 80 mls/ hr [id number] IV Last administered on 08/28/16t 12:59; Admin Dose 80 MLS/HR; Start 08/28/16 at 11:49 Ondansetron HCl (Zofran Inj) 4 mg Q6H PRN IV NAUSEA AND/OR VOMITING; Start at 12:00 Acetaminophen (Tylenol Tab) 650 mg Q6H PRN PO PAIN LEVEL 1-3 OR FEVER; Start at 12:00 Acetaminophen (Tylenol Supp) 650 mg Q6H PRN HI PAIN LEVEL 1-3 OR FEVER; Start 08/28/16 at 12:00 Acetaminophen/ Hydrocodone Bitart ([place] (5/325)) 1 tab Q6H PRN PO MODERATE PAIN LEVEL 4-6; Start 08/28/16 at 12:00 Acetaminophen/ Hydrocodone Bitart ([place] (5/325)) 2 tab Q6H PRN PO SEVERE PAIN LEVEL 7-10; Start 08/28/16 at 12:00 Morphine Sulfate (morphine) 2 mg Q4H PRN IV SEVERE PAIN LEVEL 7-10; Start 08/28 at 12:00 Docusate Sodium (Colace) 100 mg Q12H PRN PO CONSTIPATION; Start 08/28/16 at 12: 00 Magnesium Hydroxide (Milk Of Mag) 30 ml DAILY PRN PO CONSTIPATION; Start at 12:00 Bisacodyl (Dulcolax Supp) 10 mg DAILY PRN [place] CONSTIPATION; Start 08/28/16 at 12 :00 Pantoprazole (Protonix Iv) 40 mg DAILY@06 IV ; Start 08/29/16 at 06:00 MINOO BENJAMIN MD August 28, 2016 14:28
--- NOTE | 2016-08-28 16:36 | HP ---
Date/Time of Note Date/Time of Note DATE: 08/28/16 TIME: 16:30 Assessment/Plan VTE Prophylaxis VTE Prophylaxis Intervention: SCD's Lines/Catheters IV Catheter Type (from Nrsg): Peripheral IV Assessment/Plan Chief Complaint/Hosp Course assessment and plan 1. Abdominal pain with history of gastroparesis. Continue on Reglan for now. GI consult is following. Will follow up on records from [facility] considering previous EGD. Further GI intervention per GI consult 2. GERD. Continue PPI medication 3. History of cigarette smoking. Cessation advised. 4. Obesity. Weight reduction was advised Admission process 40 minutes Discussed plan of care with Problems: HPI/ROS Admit Date/Time Admit Date/Time August 28, 2016 at 09:35 Hx of Present Illness This is a 26-year-old female with past medical history gastroparesis reportedly diagnosed 3 years ago who came to [facility] due to reports of abdominal pain. According to the patient her pain started this morning. She had taken her normal GI medications with Carafate and Protonix and Maalox and started to have epigastric pain that radiated up to her midsternal area and subsequently vomited her medications. She did state that she been hospitalized for similar issue and had EGD reported in August 2016 at [facility]. She did state that at that time it was found to be negative with no ulcerations or reported hernia. She did state that she follows up with an outpatient GI specialist and that she was planned to have a "pacemaker" placed in her abdominal area.Subsequently [facility] she did have labs done that did show a have her to have white count of 40.7 although she did remain afebrile. She did report that she also had some associated chest pain but that it was burning in nature and reports that was likely her GERD. Currently the patient still reports having some epigastric pain. No reports of nausea vomiting diarrhea or shortness of breath. We will evaluate her for the aformentiond issues ROS 12 point review of systems obtained and entirely negative except that mentioned in history of present illness Eyes: no complaints ENT: no complaints Respiratory: no complaints Cardiovascular: no complaints Gastrointestinal: flatus, pain, vomiting, No constipation Genitourinary: no complaints Musculoskeletal: no complaints Skin: no complaints Neurologic: no complaints Lymphatic: no complaints Psychological: nl mood/affect, no complaints Immunologic: no complaints PMH/Family/Social Past Medical History Medical/surgical history 1. Cholecystectomy 2. Gastroparesis Medical History: no pertinent history Past Surgical History Past Surgical Hx: no surgical history Family History Significant Family History: other (Reports her mother side there is a history of Crohn's disease and celiac disease) Social History Alcohol Use: none Smoking Status: Current every day smoker ( reports smoking 3-5 cigarettes per day) Drug Use: none, marijuana Exam/Review of Systems Vital Signs Vitals Vital Signs Date Time Temp Pulse Resp B/P Pulse Ox O2 Delivery O2 Flow Rate FiO2 08/28/16 12:01 98.2 62 18 106/62 95 08/28/16 10:41 Room Air Exam Constitutional: alert Psych: nl mood/affect Head: normocephalic Eyes: nl conjunctiva Neck: supple, No jvd Respiratory: clear to auscultation, normal air movement Cardiovascular: nl pulses, regular rate and rhythm Gastrointestinal: soft, tender (Minimally tender upon epigastric area) Musculoskeletal: nl extremities to inspection, nl gait and stance Extremities: normal pulses Neurological: BREAD MOLDER II-XII intact, nl mental status, nl speech Skin: nl turgor Labs Result Diagram: 08/28/16 0930 08/28/16 0930 Medications Medications Current Medications Potassium Chloride/Dextrose/ Sod Cl (D5-1/2ns + KCl 20 Meq) 1,000 ml @ 80 mls/ hr [id number] IV Last administered on 08/28/16t 12:59; Admin Dose 80 MLS/HR; Start 08/28/16 at 11:49 Ondansetron HCl (Zofran Inj) 4 mg Q6H PRN IV NAUSEA AND/OR VOMITING; Start at 12:00 Acetaminophen (Tylenol Tab) 650 mg Q6H PRN PO PAIN LEVEL 1-3 OR FEVER; Start at 12:00 Acetaminophen (Tylenol Supp) 650 mg Q6H PRN ND PAIN LEVEL 1-3 OR FEVER; Start 08/28/16 at 12:00 Acetaminophen/ Hydrocodone Bitart ([place] (5/325)) 1 tab Q6H PRN PO MODERATE PAIN LEVEL 4-6; Start 08/28/16 at 12:00 Acetaminophen/ Hydrocodone Bitart ([place] (5/325)) 2 tab Q6H PRN PO SEVERE PAIN LEVEL 7-10; Start 08/28/16 at 12:00 Morphine Sulfate (morphine) 2 mg Q4H PRN IV SEVERE PAIN LEVEL 7-10; Start 08/28 at 12:00 Docusate Sodium (Colace) 100 mg Q12H PRN PO CONSTIPATION; Start 08/28/16 at 12: 00 Magnesium Hydroxide (Milk Of Mag) 30 ml DAILY PRN PO CONSTIPATION; Start at 12:00 Bisacodyl (Dulcolax Supp) 10 mg DAILY PRN [place] CONSTIPATION; Start 08/28/16 at 12 :00 Pantoprazole (Protonix Iv) 40 mg DAILY@06 IV ; Start 08/29/16 at 06:00 Metoclopramide HCl (Reglan) 10 mg Q6 IV ; Start 08/28/16 at 18:00 KENNY SIMMONS August 28, 2016 16:36
[2016-08-28] MEDS: morphine 2 MG INJ IV PRN (19:07)
[2016-08-28] MEDS: METOCLOPRAMIDE 10 MG INJ IV SCH (19:07)
[2016-08-28 20:00] VITALS: BP 118/53; RESP 16
[2016-08-29] MEDS: D5W-0.45 NACL + KCL 20 MEQ 1,000 ML IV SCH ×2 (00:28→12:59)
[2016-08-29] MEDS: METOCLOPRAMIDE 10 MG INJ IV SCH ×3 (00:29→12:21)
[2016-08-29] MEDS: morphine 2 MG INJ IV PRN ×3 (00:31→09:11)
[2016-08-29] MEDS ORDERED: PANTOPRAZOLE 40 MG INJ IV SCH (06:00)
[2016-08-29 06:43] LABS: ALBUMIN 3.3 g/dl (3.3-4.9); ALBUMIN/GLOBULIN RATIO 1.06; BILIRUBIN,INDIRECT 0.4 mg/dl (0-1.1); BILIRUBIN,TOTAL 0.4 mg/dl (0.2-1.3); CALCIUM 8.9 mg/dl (8.4-10.2); CHOL/HDL RATIO 4.7 RATIO; CREATININE 0.83 mg/dl (0.44-1.00); MAGNESIUM 2.2 mg/dl (1.7-2.5); POTASSIUM 3.6 mmol/L (3.5-5.1); TOTAL PROTEIN 6.4 g/dl (6.1-8.1)
[2016-08-29 06:51] LABS: T3 UPTAKE 38.5 % (23.5-40.5)
[2016-08-29 07:05] LABS: THYROID STIMULATING HORMONE 1.96 MIU/L (0.465-4.680)
[2016-08-29 07:34] VITALS: BP 112/59; RESP 16
[2016-08-29] MEDS ORDERED: HYDROmorphONE 1 MG/ML SYG IV PRN (09:30)
== END 2016-08-29 15:00 | disposition left against medical advice (07) | DRG 392 ==
LOC: E/R 08:39 → MS2 09:35
PROVIDERS: ADMIT Family Medicine; ATTEND Hospitalist
DX: K21.9 Gastro-esophageal reflux disease without esophagitis (principal); E66.01 Morbid (severe) obesity due to excess calories; Z68.36 Body mass index [BMI] 36.0-36.9, adult; Z87.891 Personal history of nicotine dependence; F41.9 Anxiety disorder, unspecified
CPT/HCPCS: 36415; 80053; 80061; 81001; 83036; 83690; 83735; 84100; 84436; 84443; 84479; 84484; 85025; 85610; 85730; 87081; 96361; 96372; 96374; 96375; C9113; J1170; J1630; J2060; J2270; J2405; J2765; J3480; J7030

== ENCOUNTER 2016-09-06 08:16 | Emergency (ER) | payer BC ==
[~2016-09-06] VITALS: Wt 104.0 kg
[~2016-09-06 08:16] MED LIST changes: -PANT40TA3 PO
[2016-09-06] MEDS ORDERED: KETOROLAC 30 MG INJ IV STA (08:56)
[2016-09-06] MEDS ORDERED: ONDANSETRON 4 MG INJ IV STA ×2 (08:56→09:21)
[2016-09-06] MEDS ORDERED: SOD CHLORIDE 0.9% 1,000 ML IV STA (08:56)
[2016-09-06] MEDS ORDERED: FAMOTIDINE 20 MG TAB PO ONE (09:30)
[2016-09-06 09:43] LABS: ADD UMIC YES; URINE BILIRUBIN (Dip) NEGATIVE (NEGATIVE); URINE BLOOD (Dip) NEGATIVE (NEGATIVE); URINE COLOR LT. YELLOW (YELLOW); URINE GLUCOSE (Dip) NEGATIVE (NEGATIVE); URINE KETONES (Dip) NEGATIVE (NEGATIVE); URINE LEUKOCYTE ESTERASE (Dip) NEGATIVE (NEGATIVE); URINE NITRITE (Dip) NEGATIVE (NEGATIVE); URINE TOTAL PROTEIN (Dip) NEGATIVE (NEGATIVE); URINE UROBILINOGEN (Dip) 0.2 E.U./dL (0.1-1.0)
[2016-09-06 09:53] LABS: URINE RBCS 0-2 /HPF (0)
[2016-09-06 09:54] LABS: BACTERIA,URINE MANY
[2016-09-06 10:00] LABS: ADD SCAN DIFF NO
[2016-09-06] MEDS ORDERED: FAMOTIDINE 20 MG INJ IV ONE (10:00)
[2016-09-06] MEDS ORDERED: TRIMETHOBENZAMIDE 100 MG/ML VIAL IM ONE (10:00)
[2016-09-06 10:04] LABS: BASOPHILS % 0.1 % (0.0-2.0); EOSINOPHILS % 0.1 % (0.0-7.0); HEMATOCRIT 38.3 % (37.0-47.0); HEMOGLOBIN 12.6 g/dl (12.0-16.0); LYMPHOCYTES # 1.5 10^3/ul (0.8-2.9); LYMPHOCYTES % 10.7 % (15.0-51.0); MEAN CORPUSCULAR HEMOGLOBIN 30.5 pg (29.0-33.0); MEAN CORPUSCULAR HGB CONC 32.9 g/dl (32.0-37.0); MEAN CORPUSCULAR VOLUME 92.7 fl (82.0-101.0); MONOCYTE # 0.6 10^3/ul (0.3-0.9); MONOCYTES % 4.1 % (0.0-11.0); NEUTROPHILS % 84.6 % (39.0-77.0); PLATELET COUNT 186 10^3/UL (140-415); RED BLOOD COUNT 4.13 10^6/ul (4.20-5.40); RED CELL DISTRIBUTION WIDTH 13.1 % (11.5-14.5); WHITE BLOOD COUNT 14.2 10^3/ul (4.8-10.8)
[2016-09-06 10:20] LABS: ALBUMIN 4.9 g/dl (3.3-4.9); ALBUMIN/GLOBULIN RATIO 2.04; BILIRUBIN,INDIRECT 0.5 mg/dl (0-1.1); BILIRUBIN,TOTAL 0.5 mg/dl (0.2-1.3); CALCIUM 9.5 mg/dl (8.4-10.2); CREATININE 0.84 mg/dl (0.44-1.00); POTASSIUM 4.1 mmol/L (3.5-5.1); TOTAL PROTEIN 7.3 g/dl (6.1-8.1)
--- NOTE | 2016-09-06 10:31 | ERD ---
ER Documentation Chief Complaint Date/Time DATE: 09/06/16 TIME: 10:28 Chief Complaint ABD PAIN, NAUSEA, VOMITING HPI This 26-year-old female comes in for abdominal pain nausea vomiting. She states that most of her pain is from her acid reflux and she feels it in her esophagus. She requests Dilaudid for her acid reflux pain says that she usually gets Dilaudid when she comes in. She suffers from gastroparesis without having diabetes. EMR reviewed as the patient was recently admitted for these symptoms ROS All systems reviewed and are negative except as per history of present illness. Medications Home Meds Active Scripts Lidocaine (Lidocaine Viscous) 100 Ml Soln, 15 ML MM Q4, #200 ML Prov:SATHISH ORDOÑEZ DO 08/26/16 Hydrocodone Bit-Acetaminophen* (Lortab* Liq) 7.5 Mg-325 Mg/15 Ml Solution, 15 ML PO Q6H Y for PAIN, #150 ML Prov:SATHISH ORDOÑEZ DO 08/26/16 Oxycodone Hcl-Acetaminophen* (Percocet*) 10-325 Mg Tablet, 1 TAB PO Q8 Y for PAIN, #10 TAB Prov:FELICIANO ABREU MD 11/16/14 Oxycodone Hcl/Acetaminophen (Percocet) 1 Tab Tab, 1 TAB PO TID, #10 TAB Prov:MARC MOREJON MD 11/15/14 Pantoprazole* (Pantoprazole*) 20 Mg Tablet.dr, 40 MG PO ONCE, #30 TAB Prov:MARC MOREJON MD 11/15/14 Famotidine* (Famotidine*) 20 Mg Tablet, 20 MG PO BID, #30 TAB Prov:MARC MOREJON MD 11/15/14 Mag Hydrox/Al Hydrox/Simeth (Maalox Max Strength Susp) 769 Ml Oral.susp, 2 TSP PO TID, #12 OZ Prov:MARC MOREJON MD 11/15/14 Reported Medications Ondansetron Hcl* (Zofran*) 4 Mg Tab, 4 MG PO Q4H Y for NAUSEA AND OR VOMITING, TAB 08/26/16 Sucralfate* (Carafate*) 1 Gm Tab, 2 GM PO AC MEALS AND BEDTIME, TAB 11/15/14 Allergies Allergies: Coded Allergies: No Known Allergy (Unverified , 6/1/17) PMhx/Soc History of Surgery: Yes Anesthesia Reaction: No Hx Neurological Disorder: No Hx Respiratory Disorders: No Hx Cardiac Disorders: No Hx Psychiatric Problems: No Hx Miscellaneous Medical Probl: Yes (gastric problems) Hx Alcohol Use: No Hx Substance Use: Yes (former marijuana user) Hx Tobacco Use: Yes (4 cigarrets a day) Smoking Status: Current every day smoker Physical Exam Vitals Vital Signs Date Time Temp Pulse Resp B/P Pulse Ox O2 Delivery O2 Flow Rate FiO2 09/06/16 08:24 98.5 09 22 164/87 97 Physical Exam Const: [] No distress notec Head: Atraumatic Eyes: Normal Conjunctiva ENT: Normal External Ears, Nose and Mouth. Neck: Full range of motion..~ No meningismus. Resp: Clear to auscultation bilaterally Cardio: Regular rate and rhythm, no murmurs Abd: Soft, very mild diffuse tenderness without guardinig or rebounf, non distended. Normal bowel sounds Skin: No petechiae or rashes Back: No midline or flank tenderness Ext: No cyanosis, or edema Neur: Awake and alert Psych: Normal Mood and Affect Result Diagram: 09/06/1694309/06/1644 Results 24 hrs Laboratory Tests Test 09/06/16 09:20 09/06/16 09:44 Urine Color LT. YELLOW Urine Clarity CLOUDY Urine pH 6.5 Urine Specific [place] 1.020 Urine Ketones NEGATIVE Urine Nitrite NEGATIVE Urine Bilirubin NEGATIVE Urine Urobilinogen 0.2 E.U./dL Urine Leukocyte Esterase NEGATIVE Urine Microscopic RBC 0-2/HPF Urine Microscopic WBC 0-2/HPF Urine Epithelial Cells MODERATE Urine Bacteria MANY Urine Coarse Granular Casts FEW Urine Hemoglobin NEGATIVE Urine Glucose NEGATIVE% Urine Total Protein NEGATIVE White Blood Count 14.210^3/ul Red Blood Count 4.1310^6/ul Hemoglobin 12.6g/dl Hematocrit 38.3% Mean Corpuscular Volume 92.7fl Mean Corpuscular Hemoglobin 30.5pg Mean Corpuscular Hemoglobin Concent 32.9g/dl Red Cell Distribution Width 13.1% Platelet Count 73533^3/UL Mean Platelet Volume 12.0fl Neutrophils % 84.6% Lymphocytes % 10.7% Monocytes % 4.1% Eosinophils % 0.1% Basophils % 0.1% Nucleated Red Blood Cells % 0.0/100WBC Neutrophils # 12.010^3/ul Lymphocytes # 1.510^3/ul Monocytes # 0.610^3/ul Eosinophils # 0.010^3/ul Basophils # 0.010^3/ul Nucleated Red Blood Cells # 0.010^3/ul Sodium Level 142mmol/L Potassium Level 4.1mmol/L Chloride Level 108mmol/L Carbon Dioxide Level 27mmol/L Anion Gap 11 Blood Urea Nitrogen 8mg/dl Creatinine 0.84mg/dl Glucose Level 98mg/dl Lactic Acid Level 1.7mmol/L Calcium Level 9.5mg/dl Total Bilirubin 0.5mg/dl Direct Bilirubin 0.00mg/dl Indirect Bilirubin 0.5mg/dl Aspartate Amino Transf (AST/SGOT) 17IU/L Alanine Aminotransferase (ALT/SGPT) 33IU/L Alkaline Phosphatase 81IU/L Total Protein 7.3g/dl Albumin 4.9g/dl Globulin 2.40g/dl Albumin/Globulin Ratio 2.04 Lipase 48U/L Current Medications Medications (Trade) Dose Ordered Sig/Renetta Route PRN Reason Start Time Stop Time Status Last Admin Dose Admin Sodium Chloride (NS) 1,000 ml @ 1,000 mls/hr Q1H STAT IV 09/06/16 08:56 09/06/16 09:55 DC 09/06/16 09:39 Ondansetron HCl (Zofran Inj) 4 mg ONCE STAT IV 09/06/16 08:56 09/06/16 08:58 DC 09/06/16 09:40 Ketorolac Tromethamine (Toradol) 30 mg ONCE STAT IV 09/06/16 08:56 09/06/16 08:58 DC 09/06/16 09:40 Famotidine (Pepcid) 20 mg ONCE ONCE PO 09/06/16 09:30 09/06/16 09:31 DC Ondansetron HCl (Zofran Inj) 4 mg ONCE STAT IV 09/06/16 09:21 09/06/16 09:23 DC 09/06/16 09:48 Famotidine (Pepcid Iv) 20 mg ONCE ONCE IV 09/06/16 10:00 09/06/16 10:01 DC 09/06/16 09:48 Trimethobenzamide HCl (Tigan) 200 mg ONCE ONCE IM 09/06/16 10:00 09/06/16 10:01 DC Procedures/MDM Complaining of reflux pain and repeatedly demanding dilaudid. Downplays abdominal pain when informed that getting dilaudid would worsen gastroparesis, but said that toradol did not help with abdominal pain. Was given pepcid IV. Refused GI cocktail. Refuses further testing including CT without dilaudid. Patient suddenly left without further treatment. Given multiple IV medications for nausea with did resolve nausea. Very high suspicion for drug seeking behavior. Labs within normal limits except for leukocytosis that appears to be chronic. Eloped from ER with her father. Departure Diagnosis: Primary Impression: Acid reflux Additional Impressions: Drug-seeking behavior Abdominal pain Leukocytosis Condition: Stable MELISSA HERRERA DO Sep 06, 2016 10:31
== END 2016-09-06 10:03 | disposition left against medical advice (07) ==
LOC: FTE 08:16 → E/R 10:03
DX: K21.9 Gastro-esophageal reflux disease without esophagitis (principal); D72.829 Elevated white blood cell count, unspecified; R10.84 Generalized abdominal pain; F17.210 Nicotine dependence, cigarettes, uncomplicated; Z76.5 Malingerer [conscious simulation]
CPT/HCPCS: 36415; 80053; 81001; 83605; 83690; 85025; 96374; 96375; 96376; 99284; J1885; J2405; J7030; J3250

== ENCOUNTER 2016-09-30 15:31 | Inpatient (IN) | payer BC ==
[~2016-09-30] VITALS: Ht 160 cm; Wt 99.0 kg
[2016-09-30] MEDS ORDERED: SOD CHLORIDE 0.9% 1,000 ML IV STA (15:56)
[2016-09-30] MEDS ORDERED: ONDANSETRON 4 MG INJ IV STA (15:56)
[2016-09-30] MEDS ORDERED: LIDOCAINE/MYLANTA 40 ML BTL PO STA (15:56)
[2016-09-30] MEDS ORDERED: FAMOTIDINE 20 MG TAB PO STA (15:56)
[2016-09-30] MEDS ORDERED: BELLADONNA/PHENOBARBITAL TAB PO STA (15:56)
[2016-09-30] MEDS: KETOROLAC 15 MG INJ IV STA ×3 (16:07→16:30)
[2016-09-30 16:10] LABS: ADD SCAN DIFF NO
[2016-09-30 16:12] LABS: BASOPHILS % 0.2 % (0.0-2.0); HEMATOCRIT 36.9 % (37.0-47.0); HEMOGLOBIN 12.9 g/dl (12.0-16.0); LYMPHOCYTES % 6.3 % (15.0-51.0); MEAN CORPUSCULAR HEMOGLOBIN 32.3 pg (29.0-33.0); MEAN CORPUSCULAR VOLUME 92.3 fl (82.0-101.0); MEAN PLATELET VOLUME 12.3 fl (7.4-10.4); MONOCYTE # 0.2 10^3/ul (0.3-0.9); MONOCYTES % 1.3 % (0.0-11.0); NEUTROPHIL # 15.1 10^3/ul (1.6-7.5); NEUTROPHILS % 91.8 % (39.0-77.0); PLATELET COUNT 203 10^3/UL (140-415); RED CELL DISTRIBUTION WIDTH 12.5 % (11.5-14.5); WHITE BLOOD COUNT 16.5 10^3/ul (4.8-10.8)
[2016-09-30] MEDS ORDERED: LORAZEPAM 2 MG INJ IV ONE ×2 (16:30)
[2016-09-30 16:31] LABS: ALANINE AMINOTRANSFERASE 30 IU/L (13-69); ALBUMIN 5.1 g/dl (3.3-4.9); ALBUMIN/GLOBULIN RATIO 1.64; ALKALINE PHOSPHATASE 106 IU/L (42-121); ANION GAP 19 (8-16); ASPARTATE AMINO TRANSFERASE 16 IU/L (15-46); BILIRUBIN,INDIRECT 0.7 mg/dl (0-1.1); BILIRUBIN,TOTAL 0.7 mg/dl (0.2-1.3); BLOOD UREA NITROGEN 9 mg/dl (7-20); CALCIUM 9.7 mg/dl (8.4-10.2); CARBON DIOXIDE 21 mmol/L (21-31); CHLORIDE 102 mmol/L (97-110); CREATININE 0.84 mg/dl (0.44-1.00); GLUCOSE 154 mg/dl (70-220); POTASSIUM 4.1 mmol/L (3.5-5.1); SODIUM 138 mmol/L (135-144); TOTAL PROTEIN 8.2 g/dl (6.1-8.1)
--- NOTE | 2016-09-30 16:41 | PSY ---
Date/Time of Note Date/Time of Note DATE: 09/30/16 TIME: 19:36 Psychiatric Subjective Eval Consent Pt consented to telemedicine: Yes Subjective Evaluation Patient location: emergency Chief Complaint: EPIGASTRIC PAIN SINCE 0300 History of present illness HPI: The patient is a 26 yo female with no formal psych hx. The patient for past three years has had many bouts of severe gastric pain, often comes to ED. has had extensive workups including endoscopty with no identifiable pathology per medicine report. Pt has been unable to function for several years, unable to work or go to [employer]. Pt was in such severe pain during interview that MD had to speak with pt's mother who reported as above. The motehr reports that when the pt has these attacks valerie are so severe that pt has to be taken to ED. By report, when pt is given opioids in ED she recovers fully and goes home. Past Psyc Hx: recently began seeing psych and placed on lexapro, no ho admits or suicide PMhx: none Meds; lexapro 10mg All: nkda MSe: Pt is in bed, very dramatically moaning, writing, making very abnormal movements, very loud, looks at MD to see if MD listentin rosie cunhaans again very loud, at one point MD mentioned to the mother that sometimes patient's have seizures when they don't have epilepsy and pt began to have a seizure (i.e., very suggestible), pt was fully unable to engage with MD except to glance at MD when making sure MD was paying attention Imp: 26 yo female with gastric pain of unclear etiology. This MD recommends pt obtain full medical workup,as has been done. In meantime, it would be worthwhile to also consider psych etiology (since both could also be at play). Woudl continue lexapro 10mg, add abilify 2mg, pt shoudl continue with her outpatient psychiatrist and also start weekly PT -at no point has pt endorsed SI or HI or shown any safety risk to parents or anyone, nor has she endorsed any so pt is ok for discharge; pt's parents agree and will care for pt as shelives with them Medical history Problems Medical Problems: (1) Acid reflux Status: Acute (2) Acid reflux Status: Acute (3) Anxiety Status: Acute (4) Epigastric pain Status: Acute (5) Gastritis Status: Acute (6) Gastroparesis Status: Acute (7) Gastroparesis Status: Acute Allergies: Coded Allergies: No Known Allergy (Unverified , 09/06/16) Psychiatric Objective Eval Mental Status Examination: Laboratory Results Laboratory Tests Test 09/30/16 16:00 White Blood Count 16.510^3/ul Red Blood Count 4.0010^6/ul Hemoglobin 12.9g/dl Hematocrit 36.9% Mean Corpuscular Volume 92.3fl Mean Corpuscular Hemoglobin 32.3pg Mean Corpuscular Hemoglobin Concent 35.0g/dl Red Cell Distribution Width 12.5% Platelet Count 44428^3/UL Mean Platelet Volume 12.3fl Neutrophils % 91.8% Lymphocytes % 6.3% Monocytes % 1.3% Eosinophils % 0.0% Basophils % 0.2% Nucleated Red Blood Cells % 0.0/100WBC Neutrophils # 15.110^3/ul Lymphocytes # 1.010^3/ul Monocytes # 0.210^3/ul Eosinophils # 0.010^3/ul Basophils # 0.010^3/ul Nucleated Red Blood Cells # 0.010^3/ul Sodium Level 138mmol/L Potassium Level 4.1mmol/L Chloride Level 102mmol/L Carbon Dioxide Level 21mmol/L Anion Gap 19 Blood Urea Nitrogen 9mg/dl Creatinine 0.84mg/dl Glucose Level 154mg/dl Calcium Level 9.7mg/dl Total Bilirubin 0.7mg/dl Direct Bilirubin 0.00mg/dl Indirect Bilirubin 0.7mg/dl Aspartate Amino Transf (AST/SGOT) 16IU/L Alanine Aminotransferase (ALT/SGPT) 30IU/L Alkaline Phosphatase 106IU/L Total Protein 8.2g/dl Albumin 5.1g/dl Globulin 3.10g/dl Albumin/Globulin Ratio 1.64 Lipase 26U/L FAZAL NASH Sep 30, 2016 16:41
[2016-09-30 16:47] LABS: TROPONIN-I < 0.012 ng/ml (0.00-0.12)
--- NOTE | 2016-09-30 17:09 | ERA ---
ER Documentation Chief Complaint Date/Time DATE: 09/30/16 TIME: 17:08 Chief Complaint EPIGASTRIC PAIN SINCE 0300 HPI 26-year-old woman here with complaints of epigastric abdominal pain similar to previous episodes. She states the only medications that resolve her symptoms are lorazepam and hydromorphone. Her parents are at the bedside and state she has these pains on a daily basis which usually resolve with oral medications administered at home. She was recently prescribed lorazepam 0.5 mg and escitalopram because her PMD felt her symptoms are mostly psychiatric based. She has had a recent upper endoscopy which was negative for gastritis, and mother states she has had multiple attempts to formally evaluate her for gastroparesis although every time just before the procedure is carried out Kailey has a severe anxiety attack and cannot complete the diagnostic testing. So gastroparesis has never been officially diagnosed. Patient has been to this emergency department at this point 6 times over the last month and has also had multiple other emergency department visits this month. Multiple previous imaging studies have been unremarkable, and patient has also had a CTA of the chest recently which was unremarkable. She has had no suicidal homicidal ideation, no fevers or chills, no hematemesis, no melena or blood per rectum, no complaints of headache or blurry vision. Mother who is at the bedside states her next psychiatrist appointment is in 1 month ROS All systems reviewed and are negative except as per history of present illness. Medications Home Meds Reported Medications Ondansetron Hcl* (Ondansetron Hcl*) 8 Mg Tablet, 8 MG PO TID Y for NAUSEA AND OR VOMITING, TAB 09/30/16 Sucralfate* (Carafate*) 1 Gm/10 Ml Susp, 1 GM PO QHS, EA 09/30/16 Lorazepam* (Lorazepam*) 0.5 Mg Tablet, 0.5 MG PO HS Y for ANXIETY, TAB 09/30/16 Pantoprazole* (Pantoprazole*) 40 Mg Tablet.dr, 40 MG PO QPM, TAB 09/30/16 Melatonin (Melatonin) 5 Mg Tablet, 5 MG PO HS, TAB 09/30/16 Escitalopram Oxalate* (Escitalopram Oxalate*) 10 Mg Tablet, 10 MG PO QHS, #30 TAB 09/30/16 Erythromycin Stearate (Erythromycin Stearate) 250 Mg Tablet, 250 MG PO QID, TAB 09/30/16 Discontinued Reported Medications Ondansetron Hcl* (Zofran*) 4 Mg Tab, 4 MG PO Q4H Y for NAUSEA AND OR VOMITING, TAB 08/26/16 Sucralfate* (Carafate*) 1 Gm Tab, 2 GM PO AC MEALS AND BEDTIME, TAB 11/15/14 Discontinued Scripts Lidocaine (Lidocaine Viscous) 100 Ml Soln, 15 ML MM Q4, #200 ML Prov:SATHISH ORDOÑEZ DO 08/26/16 Hydrocodone Bit-Acetaminophen* (Lortab* Liq) 7.5 Mg-325 Mg/15 Ml Solution, 15 ML PO Q6H Y for PAIN, #150 ML Prov:SATHISH ORDOÑEZ DO 08/26/16 Oxycodone Hcl-Acetaminophen* (Percocet*) 10-325 Mg Tablet, 1 TAB PO Q8 Y for PAIN, #10 TAB Prov:FELICIANO ABREU MD 11/16/14 Oxycodone Hcl/Acetaminophen (Percocet) 1 Tab Tab, 1 TAB PO TID, #10 TAB Prov:MARC MOREJON MD 11/15/14 Pantoprazole* (Pantoprazole*) 20 Mg Tablet.dr, 40 MG PO ONCE, #30 TAB Prov:MARC MOREJON MD 11/15/14 Famotidine* (Famotidine*) 20 Mg Tablet, 20 MG PO BID, #30 TAB Prov:MARC MOREJON MD 11/15/14 Mag Hydrox/Al Hydrox/Simeth (Maalox Max Strength Susp) 769 Ml Oral.susp, 2 TSP PO TID, #12 OZ Prov:MARC MOREJON MD 11/15/14 Allergies Allergies: Coded Allergies: No Known Allergy (Unverified , 09/30/16) PMhx/Soc Chronic recurrent abdominal pain, psychiatric illness most likely anxiety, possible intellectual disability History of Surgery: Yes Anesthesia Reaction: No Hx Neurological Disorder: No Hx Respiratory Disorders: No Hx Cardiac Disorders: No Hx Psychiatric Problems: No Hx Miscellaneous Medical Probl: Yes (gastric problems) Hx Alcohol Use: No Hx Substance Use: Yes (former marijuana user) Hx Tobacco Use: Yes (4 cigarrets a day) Smoking Status: Never smoker FmHx Family History: No diabetes Physical Exam Vitals Vital Signs Date Time Temp Pulse Resp B/P Pulse Ox O2 Delivery O2 Flow Rate FiO2 09/30/16 15:34 98.9 95 18 143/90 99 Physical Exam GENERAL: Well-developed, well-nourished, moaning, agitated, appears anxious, afebrile HEENT: Moist mucous membranes, pink conjunctiva, no cervical spine tenderness or step-off deformities, no goiter, no jaundice or icterus, extraocular movements intact without pain. No submandibular induration, and no pharyngeal erythema NEURO: Alert and oriented 3, cranial nerves II through XII intact bilaterally, pupils equal round reactive to light, no focal deficits or facial asymmetry, sensation intact distally Strength 5/5 in upper and lower extremities bilaterally CARDIAC: Regular rate and rhythm, no murmurs rubs or gallops LUNGS: Clear bilaterally no wheezing crackles or stridor ABDOMEN: Soft nontender, no guarding, no rigidity, no rebound, no psoas sign no obturator sign. Normoactive bowel sounds SKIN: Warm and dry to touch, no abrasions, contusions, or hematomas, no lacerations, no ecchymosis, no target lesions, and without ulcers EXTREMITIES: No clubbing cyanosis or edema, calves are bilaterally symmetrical, no Homans sign, no popliteal cord sign. Distal pulses equal and bilateral PSYCH: Agitated, anxious Result Diagram: 09/30/16 1600 09/30/16 1600 Results 24 hrs Laboratory Tests Test 09/30/16 16:00 White Blood Count 16.510^3/ul Red Blood Count 4.0010^6/ul Hemoglobin 12.9g/dl Hematocrit 36.9% Mean Corpuscular Volume 92.3fl Mean Corpuscular Hemoglobin 32.3pg Mean Corpuscular Hemoglobin Concent 35.0g/dl Red Cell Distribution Width 12.5% Platelet Count 52063^3/UL Mean Platelet Volume 12.3fl Neutrophils % 91.8% Lymphocytes % 6.3% Monocytes % 1.3% Eosinophils % 0.0% Basophils % 0.2% Nucleated Red Blood Cells % 0.0/100WBC Neutrophils # 15.110^3/ul Lymphocytes # 1.010^3/ul Monocytes # 0.210^3/ul Eosinophils # 0.010^3/ul Basophils # 0.010^3/ul Nucleated Red Blood Cells # 0.010^3/ul Sodium Level 138mmol/L Potassium Level 4.1mmol/L Chloride Level 102mmol/L Carbon Dioxide Level 21mmol/L Anion Gap 19 Blood Urea Nitrogen 9mg/dl Creatinine 0.84mg/dl Glucose Level 154mg/dl Calcium Level 9.7mg/dl Total Bilirubin 0.7mg/dl Direct Bilirubin 0.00mg/dl Indirect Bilirubin 0.7mg/dl Aspartate Amino Transf (AST/SGOT) 16IU/L Alanine Aminotransferase (ALT/SGPT) 30IU/L Alkaline Phosphatase 106IU/L Troponin I < 0.012ng/ml Total Protein 8.2g/dl Albumin 5.1g/dl Globulin 3.10g/dl Albumin/Globulin Ratio 1.64 Lipase 26U/L Free Thyroxine 1.14ng/dl Current Medications Medications (Trade) Dose Ordered Sig/Renetta Route PRN Reason Start Time Stop Time Status Last Admin Dose Admin Sodium Chloride (NS) 1,000 ml @ 1,000 mls/hr Q1H STAT IV 09/30/16 15:56 09/30/16 16:55 DC 09/30/16 16:08 Ondansetron HCl (Zofran Inj) 4 mg ONCE STAT IV 09/30/16 15:56 09/30/16 16:00 DC 09/30/16 16:07 Famotidine (Pepcid) 40 mg ONCE STAT PO 09/30/16 15:56 09/30/16 16:00 DC 09/30/16 16:30 Miscellaneous Medication (Gi Cocktail (2)) 40 ml ONCE STAT PO 09/30/16 15:56 09/30/16 16:00 DC 09/30/16 16:08 Belladonna/ Phenobarbital () 2 tab ONCE STAT PO 09/30/16 15:56 09/30/16 16:00 DC 09/30/16 16:30 Ketorolac Tromethamine (Toradol) 15 mg ONCE STAT IV 09/30/16 15:56 09/30/16 16:00 DC 09/30/16 16:30 Lorazepam (Ativan) 1 mg ONCE ONCE IV 09/30/16 16:30 09/30/16 16:31 DC 09/30/16 16:20 Lorazepam (Ativan) 1 mg ONCE ONCE IV 09/30/16 16:30 09/30/16 16:31 DC 09/30/16 16:36 Procedures/MDM IV line was established patient was placed on shrimp peeler rhythm strip revealed a sinus rhythm at about 80 bpm with upright P and T waves. Patient was afebrile. EKG performed, read by me: 88 bpm, normal sinus rhythm, normal axis, no acute ST segment changes, narrow QRS complex, with good R-wave progression in precordial leads. Chest x-ray has been ordered by me results are pending I will follow-up ( patient may have reviewed refused chest x-ray) CBC revealed a leukocytosis of 17, hemoglobin hematocrit within normal limits, electrolytes normal, liver function tests normal, troponin negative. I informed the patient and her parents were at the bedside that opioids will exacerbate gastroparesis and may complicate her situation, my recommendation was to avoid opiates especially IV form. Although I did administer lorazepam 1 mg IV 2 doses for severe anxiety and agitation. I order Toradol for pain control the patient refused, she also received a GI cocktail, famotidine 40 mg p.o., and Zofran 4 mg IV. She had continued retching and nausea while here in the emergency department. I obtained a tele-psychiatrist consultation given her overall presentation and symptomatology. Psychiatrist saw the patient at the bedside and spoke to her parents as well. The psychiatrist felt at least some of her symptoms or anxiety based with possibly an overlying mild psychosis. Recommendation was for aripiprazole therapy orally. Patient will be admitted to [facility] for continued medical management and possible GI consultation. Departure Diagnosis: Primary Impression: Epigastric pain Additional Impression: Anxiety Condition: MARC Rice MD Sep 30, 2016 17:09
[2016-09-30] MEDS ORDERED: ARIPIPRAZOLE 5 MG TAB PO STA (17:19)
[2016-09-30] MEDS ORDERED: ERYT250T55 PO (17:31)
[2016-09-30] MEDS ORDERED: ESCI10TA48 PO (17:32)
[2016-09-30] MEDS ORDERED: MELA5TAB4 PO (17:32)
[2016-09-30] MEDS ORDERED: PANT40TA4 PO (17:33)
[2016-09-30] MEDS ORDERED: LORA0.5T PO (17:33)
[2016-09-30] MEDS ORDERED: CARAS PO (17:34)
[2016-09-30] MEDS ORDERED: ONDA8TAB83 PO (17:35)
[2016-09-30 18:22] VITALS: BP 127/75; RESP 18
[2016-09-30 18:38] VITALS: Ht 160 cm; Wt 99.0 kg
[2016-09-30] MEDS ORDERED: HYDROCODONE/APAP (5/325) TAB PO PRN (19:00)
[2016-09-30] MEDS ORDERED: hydrALAzine 20 MG INJ IV PRN (19:00)
[2016-09-30] MEDS ORDERED: MAGNESIUM HYDROXIDE 30ML CUP PO PRN (19:00)
[2016-09-30] MEDS ORDERED: ONDANSETRON 4 MG TAB PO PRN (19:00)
[2016-09-30] MEDS ORDERED: NITROGLYCERIN (SL) 0.4 MG TAB SL PRN (19:00)
[2016-09-30] MEDS ORDERED: LORAZEPAM 2 MG INJ IV PRN (19:00)
[2016-09-30] MEDS ORDERED: NACL 0.9% 3 ML SYG IV SCH (19:00)
[2016-09-30] MEDS ORDERED: NA PHOSPHATE/BIPHOS 133 ML ENEMA PR PRN (19:00)
[2016-09-30] MEDS ORDERED: DOCUSATE SODIUM 100 MG CAP PO PRN (19:00)
[2016-09-30] MEDS ORDERED: morphine 2 MG INJ IV PRN (19:00)
[2016-09-30] MEDS ORDERED: ACETAMINOPHEN 325 MG TAB PO PRN (19:00)
[2016-09-30] MEDS ORDERED: ONDANSETRON 4 MG INJ IV PRN (19:00)
[2016-09-30] MEDS ORDERED: ALBUTEROL/IPRATROPIUM (NEB) 3 ML AMP HHN PRN (19:00)
[2016-09-30] MEDS: SOD CHLORIDE 0.9% 1,000 ML IV SCH (19:11)
[2016-09-30] MEDS: METOCLOPRAMIDE 10 MG INJ IV PRN (19:22)
[2016-09-30] MEDS ORDERED: ONDANSETRON INJ 8 MG in SOD CHLORIDE 0.9% 50 ML IV PRN (19:30)
[2016-09-30 20:07] VITALS: BP 128/68; RESP 19
[2016-09-30] MEDS: HEPARIN 5,000 UNIT/0.5 ML VIAL SC SCH (21:00)
[2016-09-30] MEDS ORDERED: HYDROmorphONE 4 MG/ML SYG IV PRN (21:30)
[2016-09-30] MEDS ORDERED: ZOLPIDEM 5 MG TAB PO PRN (21:30)
[2016-09-30] MEDS: HYDROmorphONE 2 MG/ML SYG IV PRN (21:42)
[2016-10-01] MEDS: SOD CHLORIDE 0.9% 1,000 ML IV SCH (04:38)
[2016-10-01] MEDS: METOCLOPRAMIDE 10 MG INJ IV PRN (04:54)
[2016-10-01] MEDS: HYDROmorphONE 2 MG/ML SYG IV PRN (04:55)
[2016-10-01 05:18] LABS: ADD SCAN DIFF NO
[2016-10-01 05:34] LABS: BASOPHILS % 0.1 % (0.0-2.0); HEMATOCRIT 35.8 % (37.0-47.0); HEMOGLOBIN 11.9 g/dl (12.0-16.0); LYMPHOCYTES # 1.9 10^3/ul (0.8-2.9); MEAN CORPUSCULAR HEMOGLOBIN 31.2 pg (29.0-33.0); MEAN CORPUSCULAR HGB CONC 33.2 g/dl (32.0-37.0); MEAN CORPUSCULAR VOLUME 93.7 fl (82.0-101.0); MEAN PLATELET VOLUME 12.3 fl (7.4-10.4); MONOCYTE # 0.7 10^3/ul (0.3-0.9); MONOCYTES % 4.7 % (0.0-11.0); NEUTROPHILS % 82.7 % (39.0-77.0); PLATELET COUNT 190 10^3/UL (140-415); RED BLOOD COUNT 3.82 10^6/ul (4.20-5.40); WHITE BLOOD COUNT 15.7 10^3/ul (4.8-10.8)
[2016-10-01 05:51] LABS: CALCIUM 9.1 mg/dl (8.4-10.2); CHOL/HDL RATIO 3.7 RATIO; CREATININE 0.7 mg/dl (0.44-1.00); MAGNESIUM 2.1 mg/dl (1.7-2.5); PHOSPHORUS 4.2 mg/dl (2.5-4.9); POTASSIUM 3.9 mmol/L (3.5-5.1)
[2016-10-01] MEDS ORDERED: PANTOPRAZOLE 40 MG INJ IV SCH (06:00)
[2016-10-01 07:02] LABS: THYROID STIMULATING HORMONE 0.29 MIU/L (0.465-4.680)
[2016-10-01] MEDS: HEPARIN 5,000 UNIT/0.5 ML VIAL SC SCH (08:06)
[2016-10-01 08:13] VITALS: BP 112/60; RESP 18
--- NOTE | 2016-10-01 09:17 | HP ---
DATE OF ADMISSION: 09/30/2016 TIME: 11:00 p.m. CHIEF COMPLAINT: Abdominal pain, nausea, vomiting. HISTORY OF PRESENT ILLNESS: 1. The patient is a 26-year-old female who was recently discharged with a diagnosis of abdominal pa in with history of gastroparesis, possibly secondary to psychiatric disorder. 2. GERD. 3. History of cigarette smoking. Patient did leave AMA during the last hospitalization in August this year. The patient comes back in for epigastric pain and nausea, vomiting. She is unable to tolera te any food. The patient reportedly did have a recent upper endoscopy which was negative for gastri tis. The patient has been in multiple times to evaluate her gastroparesis, but every time, a proced ure is about to be carried out, she has a severe anxiety attack and cannot complete the diagnostic t esting. Gastroparesis has never been officially diagnosed. The patient does state that she has anx iety and depression. She has no other acute complaints at this time. Of note, the patient denies a ny fever, chills, hematemesis, melena, blood per rectum, no headaches, no chest pain, no blurry visi on. The patient does have a psychiatric appointment in the following month. In the ED, the patient was evaluated by telemetry/psychiatry and she was diagnosed with anxiety. PAST MEDICAL HISTORY: Depression, anxiety, obesity and GERD, possible gastroparesis. PAST SURGICAL HISTORY: Cholecystectomy. HOME MEDICATIONS: 1. Zofran. 2. Carafate. 3. Lorazepam. 4. Protonix. 5. Melatonin. 6. Lexapro. 7. Erythromycin. ALLERGIES: NO KNOWN DRUG ALLERGIES. FAMILY HISTORY: Diabetes. SOCIAL HISTORY: Denies any alcohol abuse. Denies any substance abuse. Does smoke cigarettes. The patient used to smoke marijuana. REVIEW OF SYSTEMS: A 12-point review of systems negative except as in HPI. PHYSICAL EXAMINATION: VITAL SIGNS: Temperature is 98.8, pulse 85, respirations 19, BP is 128/68, oxygen saturation 94% on room air. GENERAL: No acute distress, alert and oriented. HEENT: Normocephalic, atraumatic. LUNGS: Clear to auscultation. CARDIOVASCULAR: Regular rate and rhythm. ABDOMEN: Nondistended, nontender, soft. EXTREMITIES: No clubbing, cyanosis, or edema. LABORATORY TESTS: White count 16.7, hemoglobin 11.9, platelets are at 190. Chemistry within normal limits. ASSESSMENT AND PLAN: 1. Abdominal pain with nausea and vomiting, likely secondary to gastroparesis. This has not been o fficially diagnosed. The patient has been unable to pursue with testing secondary to anxiety. We w ill consult GI and treat her nausea with Zofran and Reglan. Will attempt a clear liquid diet. 2. Leukocytosis, chronic, likely reactive. The patient has no evidence of underlying infection. 3. Normocytic anemia, mild. We will monitor. 4. History of anxiety and depression. Continue psychiatric medications. The patient has been eval uated by telemetry/psychiatry in the ED and waiting for formal recommendations. 5. Obesity, lifestyle changes and should be advised. 6. Prophylaxis: SCDs. Dictated By: PRIMO TRUONG MD BS/NTS Conf#: [id number] DID#: [id number]
--- NOTE | 2016-10-01 17:19 | QN ---
Documentation Comment AMA DISCHARGE SUMMARY Patient left against medical advice has no discharge instructions or follow-up was planned. CARLOS DRAKE Oct 01, 2016 17:19
[2016-10-02] MEDS ORDERED: LIPA1CAP45 PO (08:26)
[2016-10-02] MEDS ORDERED: LEVO750T25 PO (13:58)
[2016-10-02] MEDS ORDERED: TRAM50TA2 PO (13:58)
[2016-10-02] MEDS ORDERED: LACT1CAP57 PO (13:58)
[2016-10-02] MEDS ORDERED: HYOS0.1212 SL (19:16)
[2016-10-02] MEDS ORDERED: PANT40TA4 PO (19:16)
[2016-10-02] MEDS ORDERED: ARIP2TAB8 PO (19:16)
== END 2016-10-01 11:28 | disposition left against medical advice (07) | DRG 392 ==
LOC: E/R 15:31 → PP2 16:59
PROVIDERS: ADMIT Hospitalist; ATTEND Hospitalist
DX: R10.13 Epigastric pain (principal); F32.9 Major depressive disorder, single episode, unspecified; K21.9 Gastro-esophageal reflux disease without esophagitis; F41.9 Anxiety disorder, unspecified; F99 Mental disorder, not otherwise specified; E66.9 Obesity, unspecified; Z68.38 Body mass index [BMI] 38.0-38.9, adult; Z87.891 Personal history of nicotine dependence; D64.9 Anemia, unspecified
CPT/HCPCS: 36415; 80048; 80053; 80061; 80307; 83036; 83690; 83735; 84100; 84439; 84443; 84484; 85025; 93005; 96374; 96375; C9113; J1170; J1644; J1885; J2060; J2270; J2405; J2765; J7030

== ENCOUNTER 2016-10-02 03:22 | Inpatient (IN) | payer BC ==
[~2016-10-02] VITALS: Ht 167.6 cm; Wt 101.0 kg
[~2016-10-02 03:22] MED LIST changes: +CARAS PO; +ERYT250T55 PO; +ESCI10TA48 PO; +LORA0.5T PO; +MELA5TAB4 PO; +ONDA8TAB83 PO; +PANT40TA4 PO
[2016-10-02 03:31] VITALS: Ht 167.6 cm; Wt 101.0 kg
[2016-10-02] MEDS ORDERED: LORAZEPAM 2 MG INJ IV ONE (04:00)
[2016-10-02 04:30] LABS: ADD SCAN DIFF NO
[2016-10-02 04:33] LABS: BASOPHILS % 0.2 % (0.0-2.0); EOSINOPHILS % 0.1 % (0.0-7.0); HEMOGLOBIN 11.5 g/dl (12.0-16.0); LYMPHOCYTES # 1.2 10^3/ul (0.8-2.9); LYMPHOCYTES % 8.3 % (15.0-51.0); MEAN CORPUSCULAR HEMOGLOBIN 32.4 pg (29.0-33.0); MEAN CORPUSCULAR HGB CONC 34.8 g/dl (32.0-37.0); MEAN PLATELET VOLUME 12.2 fl (7.4-10.4); MONOCYTE # 0.4 10^3/ul (0.3-0.9); NEUTROPHIL # 12.6 10^3/ul (1.6-7.5); PLATELET COUNT 180 10^3/UL (140-415); RED BLOOD COUNT 3.55 10^6/ul (4.20-5.40); RED CELL DISTRIBUTION WIDTH 12.7 % (11.5-14.5); WHITE BLOOD COUNT 14.3 10^3/ul (4.8-10.8)
--- NOTE | 2016-10-02 04:33 | RADRPT ---
PROCEDURE: CHEST - 1 VIEW CLINICAL INDICATION: 26-year-old female with chest pain. TECHNIQUE: A single frontal AP portable view of the chest was performed. The images were reviewed on a PACS workstation. COMPARISON: Chest x-ray November 15, 2014. FINDINGS: The cardiomediastinal silhouette has a normal appearance. There is a focal infiltrate within the med ial right lower lung zone with air bronchograms present. The pulmonary vascularity is within normal limits. There is no evidence for pneumothorax or pneumomediastinum. The osseous structures are intac t. IMPRESSION: Focal medial right lower lung zone infiltrate. .Mike Joe MD, MD Date Time Electronically viewed and signed by .Mike Joe MD, on 10/02/2016 04:32 ./
[2016-10-02 04:51] LABS: INR 1.03; PROTIME 13.5 Sec (12.2-14.2); PT RATIO 1.1
[2016-10-02 04:52] LABS: ALBUMIN 4.4 g/dl (3.3-4.9); ALBUMIN/GLOBULIN RATIO 1.76; BILIRUBIN,INDIRECT 0.4 mg/dl (0-1.1); BILIRUBIN,TOTAL 0.4 mg/dl (0.2-1.3); CALCIUM 8.7 mg/dl (8.4-10.2); CREATININE 0.76 mg/dl (0.44-1.00); PARTIAL THROMBOPLASTIN TIME 26.6 Sec (25.0-35.0); POTASSIUM 3.3 mmol/L (3.5-5.1); TOTAL PROTEIN 6.9 g/dl (6.1-8.1)
[2016-10-02 05:04] LABS: TROPONIN-I 0.021 ng/ml (0.00-0.12)
[2016-10-02] MEDS ORDERED: ONDANSETRON 4 MG INJ IV STA ×2 (05:37→06:46)
[2016-10-02] MEDS ORDERED: CEFTRIAXONE 1 GM/50 ML (PMX) 50 ML IVPB STA (05:37)
[2016-10-02] MEDS ORDERED: AZITHROMYCIN 500MG/NS (PMX) 250 ML IV STA (05:37)
[2016-10-02] MEDS ORDERED: morphine 4 MG/ML VIAL IV STA (05:37)
--- NOTE | 2016-10-02 05:45 | ERA ---
ER Documentation Chief Complaint Date/Time DATE: 10/02/16 TIME: 05:43 Chief Complaint chest pain , vomiting HPI 26-year-old with chest pain and vomiting. Patient admitted 24 hours ago, over sign out AGAINST MEDICAL ADVICE. Returns for worsening chest pain, cough, posttussive vomiting was nonbilious nonbloody 3-4 episodes. No fevers no chills. Patient in moderate to severe amount of pain and discomfort ROS All systems reviewed and are negative except as per history of present illness. Medications Home Meds Reported Medications Ondansetron Hcl* (Ondansetron Hcl*) 8 Mg Tablet, 8 MG PO TID Y for NAUSEA AND OR VOMITING, TAB 09/30/16 Sucralfate* (Carafate*) 1 Gm/10 Ml Susp, 1 GM PO QHS, EA 09/30/16 Lorazepam* (Lorazepam*) 0.5 Mg Tablet, 0.5 MG PO HS Y for ANXIETY, TAB 09/30/16 Pantoprazole* (Pantoprazole*) 40 Mg Tablet.dr, 40 MG PO QPM, TAB 09/30/16 Melatonin (Melatonin) 5 Mg Tablet, 5 MG PO HS, TAB 09/30/16 Escitalopram Oxalate* (Escitalopram Oxalate*) 10 Mg Tablet, 10 MG PO QHS, #30 TAB 09/30/16 Erythromycin Stearate (Erythromycin Stearate) 250 Mg Tablet, 250 MG PO QID, TAB 09/30/16 Discontinued Reported Medications Ondansetron Hcl* (Zofran*) 4 Mg Tab, 4 MG PO Q4H Y for NAUSEA AND OR VOMITING, TAB 08/26/16 Sucralfate* (Carafate*) 1 Gm Tab, 2 GM PO AC MEALS AND BEDTIME, TAB 11/15/14 Discontinued Scripts Lidocaine (Lidocaine Viscous) 100 Ml Soln, 15 ML MM Q4, #200 ML Prov:YUMIKOOSMONAESTALDOS A. DO 08/26/16 Hydrocodone Bit-Acetaminophen* (Lortab* Liq) 7.5 Mg-325 Mg/15 Ml Solution, 15 ML PO Q6H Y for PAIN, #150 ML Prov:LEKKOS,APOSTOLOS A. DO 08/26/16 Oxycodone Hcl-Acetaminophen* (Percocet*) 10-325 Mg Tablet, 1 TAB PO Q8 Y for PAIN, #10 TAB Prov:FELICIANO ABREU MD 11/16/14 Oxycodone Hcl/Acetaminophen (Percocet) 1 Tab Tab, 1 TAB PO TID, #10 TAB Prov:MARC MOREJON MD 11/15/14 Pantoprazole* (Pantoprazole*) 20 Mg Tablet.dr, 40 MG PO ONCE, #30 TAB Prov:MARC MOREJON MD 11/15/14 Famotidine* (Famotidine*) 20 Mg Tablet, 20 MG PO BID, #30 TAB Prov:MARC MOREJON MD 11/15/14 Mag Hydrox/Al Hydrox/Simeth (Maalox Max Strength Susp) 769 Ml Oral.susp, 2 TSP PO TID, #12 OZ Prov:MARC MOREJON MD 11/15/14 Allergies Allergies: Coded Allergies: No Known Allergy (Unverified , 09/30/16) PMhx/Soc History of Surgery: Yes (gallbladder remove 2 yrs ago) Anesthesia Reaction: No Hx Neurological Disorder: No Hx Respiratory Disorders: No Hx Cardiac Disorders: No Hx Psychiatric Problems: Yes (anxiety, depression) Hx Miscellaneous Medical Probl: No Hx Alcohol Use: No Hx Substance Use: Yes (marijuana) Hx Tobacco Use: Yes (5 x cigarettes a day) Smoking Status: Current every day smoker Physical Exam Vitals Vital Signs Date Time Temp Pulse Resp B/P Pulse Ox O2 Delivery O2 Flow Rate FiO2 10/02/16 03:31 99.3 102 20 148/62 97 Physical Exam Const: [] Head: Atraumatic Eyes: Normal Conjunctiva ENT: Normal External Ears, Nose and Mouth. Neck: Full range of motion..~ No meningismus. Resp: Clear to auscultation bilaterally Cardio: Regular rate and rhythm, no murmurs Abd: Soft, non tender, non distended. Normal bowel sounds Skin: No petechiae or rashes Back: No midline or flank tenderness Ext: No cyanosis, or edema Neur: Awake and alert Psych: Normal Mood and Affect Result Diagram: 10/02/1642110/02/16421 Results 24 hrs Laboratory Tests Test 10/02/16 04:22 White Blood Count 14.310^3/ul Red Blood Count 3.5510^6/ul Hemoglobin 11.5g/dl Hematocrit 33.0% Mean Corpuscular Volume 93.0fl Mean Corpuscular Hemoglobin 32.4pg Mean Corpuscular Hemoglobin Concent 34.8g/dl Red Cell Distribution Width 12.7% Platelet Count 72500^3/UL Mean Platelet Volume 12.2fl Neutrophils % 88.0% Lymphocytes % 8.3% Monocytes % 3.0% Eosinophils % 0.1% Basophils % 0.2% Nucleated Red Blood Cells % 0.0/100WBC Neutrophils # 12.610^3/ul Lymphocytes # 1.210^3/ul Monocytes # 0.410^3/ul Eosinophils # 0.010^3/ul Basophils # 0.010^3/ul Nucleated Red Blood Cells # 0.010^3/ul Prothrombin Time 13.5Sec Prothrombin Time Ratio 1.1 INR International Normalized Ratio 1.03 Activated Partial Thromboplast Time 26.6Sec Sodium Level 136mmol/L Potassium Level 3.3mmol/L Chloride Level 102mmol/L Carbon Dioxide Level 26mmol/L Anion Gap 11 Blood Urea Nitrogen 10mg/dl Creatinine 0.76mg/dl Glucose Level 108mg/dl Calcium Level 8.7mg/dl Total Bilirubin 0.4mg/dl Direct Bilirubin 0.00mg/dl Indirect Bilirubin 0.4mg/dl Aspartate Amino Transf (AST/SGOT) 14IU/L Alanine Aminotransferase (ALT/SGPT) 32IU/L Alkaline Phosphatase 75IU/L Troponin I 0.021ng/ml B-Type Natriuretic Peptide 220PG/ML Total Protein 6.9g/dl Albumin 4.4g/dl Globulin 2.50g/dl Albumin/Globulin Ratio 1.76 Current Medications Medications (Trade) Dose Ordered Sig/Renetta Route PRN Reason Start Time Stop Time Status Last Admin Dose Admin Lorazepam 2 mg 2 mg ONCE ONCE IV 10/02/16 04:00 10/02/16 04:01 DC 10/02/16 03:50 Azithromycin 250 ml @ 250 mls/hr ONCE STAT IV 10/02/16 05:37 10/02/16 06:36 Ceftriaxone Sodium (Rocephin) 50 ml @ 100 mls/hr ONCE STAT IVPB 10/02/16 05:37 10/02/16 06:06 Morphine Sulfate (morphine) 4 mg ONCE STAT IV 10/02/16 05:37 10/02/16 05:38 DC Ondansetron HCl (Zofran Inj) 4 mg ONCE STAT IV 10/02/16 05:37 10/02/16 05:38 DC Procedures/MDM EKG: Rate/Rhythm: [Normal Sinus Rhythm] QRS, ST, T-waves: [No changes consistent w/ acute ischemia] Impression: [No evidence of ischemia or arrhythmia] Chest X-ray 1V Interpreted by me: Soft Tissue: No acute abnormalities Bones: No acute abnormalities Mediastinum/Cardiac Silhouette/Lungs: Right lower lobe infiltrates. Impression: Pneumonia Blood and urine cultures pending Medical decision-makin female with right lower lobe pneumonia. Patient admitted to hospitalist. Clinically stable at this time Departure Diagnosis: Primary Impression: Chest pain Qualified Code: R07.1 - Chest pain on breathing Additional Impression: Pneumonia Qualified Code: J18.1 - Pneumonia of right lower lobe due to infectious organism YULIANA BARKSDALE Oct 02, 2016 05:44
[2016-10-02] MEDS ORDERED: HYDROmorphONE 1 MG/ML SYG IV STA (06:09)
[2016-10-02] MEDS ORDERED: HALOPERIDOL 5 MG INJ IM ONE (07:30)
[2016-10-02 08:16] VITALS: TEMP 98.7
[2016-10-02] MEDS ORDERED: LIPA1CAP45 PO (08:26)
[2016-10-02 09:02] VITALS: BP 106/56; RESP 18
[2016-10-02] MEDS ORDERED: LACT1CAP57 PO (13:58)
[2016-10-02] MEDS ORDERED: TRAM50TA2 PO (13:58)
[2016-10-02] MEDS ORDERED: LEVO750T25 PO (13:58)
[2016-10-02] MEDS ORDERED: HYDROCODONE/APAP (5/325) TAB PO ONE (14:00)
[2016-10-02] MEDS ORDERED: LEVOFLOXACIN 750MG/D5W (PMX) 150 ML IVPB SCH (16:00)
--- NOTE | 2016-10-02 16:59 | PDOCDIS ---
Discharge Instructions DIAGNOSIS Discharge Diagnosis Pneumonia causing chest pain CONDITION Patient Condition: Stable HOME CARE INSTRUCTIONS: Diet Instructions: Regular ACTIVITY: Activity Restrictions: Slowly Increase Activity Rest between Activity REFERRALS Agency Name and Phone Number: please arrange for nursing eval patientfor improvement OTHER ORDERS: Other Orders: Followup with your primary doctor within the next 1-2 weeks. If you don't have one please let someone know, we can give you resources that may help you pick one. You may call Dr Ricky Cain's office. he's accepting new patients Name, Degree: Ricky Cain MD Specialty: Internal Medicine Comments: Office Address: [address] [place] [address] [place] [id number] Office Office You may also call your insurance company to assign one to you. Review your medication list with your nurse before leaving and if you need new prescriptions please let your nurse know. I may have made changes to your home medications or given you new prescriptions , please let your primary doctor know as well. Stay compliant with your medications and report any side effects to your PCP or pharmacist. Return to the ER if you have any concerns and cannot reach your doctors or call your insurance company, they usually have a nurse that can help you. CARLOS DRAKE. Oct 02, 2016 16:59
[2016-10-02] MEDS ORDERED: PANT40TA4 PO (19:16)
[2016-10-02] MEDS ORDERED: HYOS0.1212 SL (19:16)
[2016-10-02] MEDS ORDERED: ARIP2TAB8 PO (19:16)
[2016-10-02 20:00] VITALS: BP 118/78; PULSE 58; RESP 16
--- NOTE | 2016-10-03 20:48 | CONS ---
Date/Time of Note Date/Time of Note DATE: 10/03/16 TIME: 20:47 Consultation Date/Type/Reason Admit Date/Time Oct 02, 2016 at 05:49 Past Surgical History Past Surgical Hx: no surgical history Social History Smoking Status: Current every day smoker Exam/Review of Systems Vital Signs Vitals VS - Last 72 Hours, by Label Date Time Temp Pulse Resp B/P Pulse Ox O2 Delivery O2 Flow Rate FiO2 10/02/16 20:00 97.8 58 16 118/78 100 Room Air 10/02/16 09:02 97.8 54 18 106/56 96 10/02/16 08:16 98.7 64 20 130/66 97 Room Air 10/02/16 07:25 98.4 85 22 142/85 98 Room Air 10/02/16 06:00 55 145/95 96 10/02/16 05:30 57 102/65 96 10/02/16 04:30 61 104/57 96 10/02/16 03:31 99.3 102 20 148/62 97 Vital Signs Date Time Temp Pulse Resp B/P Pulse Ox O2 Delivery O2 Flow Rate FiO2 10/02/16 20:00 97.8 58 16 118/78 100 Room Air Intake and Output 10/02/16 10/02/16 10/03/16 15:00 23:00 07:00 Intake Total 510 ml Output Total 0 ml Balance 510 ml Results Result Diagram: 10/02/16 0422 10/02/16 0422 CARLOS DRAKE Oct 03, 2016 20:48
== END 2016-10-02 20:50 | disposition home or self-care (01) | DRG 313 ==
LOC: E/R 03:22 → MS2 05:49
PROVIDERS: ADMIT Family Medicine; ATTEND Family Medicine
DX: R07.9 Chest pain, unspecified (principal); F17.200 Nicotine dependence, unspecified, uncomplicated
CPT/HCPCS: 71010; 80053; 83880; 84484; 85025; 85610; 85730; 87040; 93005; 96365; 96367; 96372; 96375; 96376; J0456; J0696; J1170; J1630; J1956; J2060; J2270; J2405

== ENCOUNTER 2016-10-04 04:45 | Emergency (ER) | payer BC ==
[~2016-10-04] VITALS: Ht 160 cm; Wt 100.5 kg
[~2016-10-04 04:45] MED LIST changes: +ARIP2TAB8 PO; -FAMO20TA18 PO; -HYDR15SO8 PO; +HYOS0.1212 SL; +LACT1CAP57 PO; +LEVO750T25 PO; -LIDO20SO19 MM; +LIPA1CAP45 PO; -MAG355OR15 PO; -ONDA-43 PO; -OXYC-284 PO; -PANT20TA3 PO; -PERCOCET PO; -SUCR1TAB56 PO; +TRAM50TA2 PO
[2016-10-04 04:48] VITALS: Ht 160 cm; Wt 100.5 kg
[2016-10-04] MEDS ORDERED: ACET500C5 PO (06:27)
[2016-10-04] MEDS ORDERED: HYDROCODONE/APAP (5/325) TAB PO ONE (06:30)
--- NOTE | 2016-10-04 07:39 | ERD ---
ER Documentation Chief Complaint Date/Time DATE: 10/04/16 TIME: 07:30 Chief Complaint chest pain pt said its related to PNA HPI This a 26-year-old female who presents the emergency department today complaining of chest pain for the past several days. States she is taking her antibiotics but she is unsure of the name. Denies any fevers or chills or persistent cough or shortness of breath. States she has not taken any medication for pain. ROS All systems reviewed and are negative except as per history of present illness. Medications Home Meds Active Scripts Acetaminophen* (Tylophen*) 500 Mg Capsule, 1 CAP PO Q6H Y for PAIN AND OR ELEVATED TEMP, #30 CAP Prov:GWEN GERONIMO PA-C 10/04/16 Hyoscyamine Sulfate* (Hyoscyamine Sulfate*) 0.125 Mg Tab.subl, 0.125 MG SL Q4H Y for abd pain and cramping, #14 TAB Prov:CARLOS DRAKE M. 10/02/16 Aripiprazole* (Abilify*) 2 Mg Tablet, 2 MG PO DAILY, #30 TAB Prov:VIDALEBONIEATITO M. 10/02/16 Pantoprazole* (Pantoprazole*) 40 Mg Tablet.dr, 40 MG PO BID WITH MEALS for 30 Days, TAB Prov:VIDALTENZINO M. 10/02/16 Tramadol HCl (Tramadol HCl) 50 Mg Tablet, 50 MG PO Q6 Y for PAIN, #18 TAB Prov:VIDALEBONIEFORMERLY [facility]. 10/02/16 Lactobacillus Rhamnosus* (Culturelle*) 1 Each Cap.sprakilah, 1 CAP PO BID for 7 Days, CAP Prov:VIDALTENZINO M. 10/02/16 Levofloxacin* (Levaquin*) 750 Mg Tablet, 750 MG PO DAILY for 7 Days, TAB Prov:TENZIN DRAKEO M. 10/02/16 Reported Medications Cxkoql-Smlczjqe-Gspdlhd* (Gaston MORTON* 36,000) 36,000 L-114,000-180,000 Unit Capsule., 1 CAP PO AC MEALS, #900 10/02/16 Ondansetron Hcl* (Ondansetron Hcl*) 8 Mg Tablet, 8 MG PO TID Y for NAUSEA AND OR VOMITING, TAB 09/30/16 Sucralfate* (Carafate*) 1 Gm/10 Ml Susp, 1 GM PO QHS, EA 09/30/16 Lorazepam* (Lorazepam*) 0.5 Mg Tablet, 0.5 MG PO HS Y for ANXIETY, TAB 09/30/16 Melatonin (Melatonin) 5 Mg Tablet, 5 MG PO HS, TAB 09/30/16 Escitalopram Oxalate* (Escitalopram Oxalate*) 10 Mg Tablet, 10 MG PO QHS, #30 TAB 09/30/16 Erythromycin Stearate (Erythromycin Stearate) 250 Mg Tablet, 250 MG PO QID, TAB 09/30/16 Discontinued Reported Medications Ondansetron Hcl* (Zofran*) 4 Mg Tab, 4 MG PO Q4H Y for NAUSEA AND OR VOMITING, TAB 08/26/16 Sucralfate* (Carafate*) 1 Gm Tab, 2 GM PO AC MEALS AND BEDTIME, TAB 11/15/14 Discontinued Scripts Lidocaine (Lidocaine Viscous) 100 Ml Soln, 15 ML MM Q4, #200 ML Prov:SATHISH ORDOÑEZ DO 08/26/16 Hydrocodone Bit-Acetaminophen* (Lortab* Liq) 7.5 Mg-325 Mg/15 Ml Solution, 15 ML PO Q6H Y for PAIN, #150 ML Prov:SATHISH ORDOÑEZ DO 08/26/16 Oxycodone Hcl-Acetaminophen* (Percocet*) 10-325 Mg Tablet, 1 TAB PO Q8 Y for PAIN, #10 TAB Prov:FELICIANO ABREU MD 11/16/14 Oxycodone Hcl/Acetaminophen (Percocet) 1 Tab Tab, 1 TAB PO TID, #10 TAB Prov:MARC MOREJON MD 11/15/14 Pantoprazole* (Pantoprazole*) 20 Mg Tablet.dr, 40 MG PO ONCE, #30 TAB Prov:MARC MOREJON MD 11/15/14 Famotidine* (Famotidine*) 20 Mg Tablet, 20 MG PO BID, #30 TAB Prov:MARC MOREJON MD 11/15/14 Mag Hydrox/Al Hydrox/Simeth (Maalox Max Strength Susp) 769 Ml Oral.susp, 2 TSP PO TID, #12 OZ Prov:MARC MOREJON MD 11/15/14 Allergies Allergies: Coded Allergies: No Known Allergy (Unverified , 10/02/16) PMhx/Soc History of Surgery: Yes (gall bladder removed 2 years ago) Anesthesia Reaction: No Hx Neurological Disorder: No Hx Respiratory Disorders: No Hx Cardiac Disorders: No Hx Psychiatric Problems: Yes (Depression and anxiety) Hx Miscellaneous Medical Probl: No Hx Alcohol Use: No Hx Substance Use: Yes (Marijuana) Hx Tobacco Use: Yes (4 cigarrettes a day) Smoking Status: Current every day smoker Physical Exam Vitals Vital Signs Date Time Temp Pulse Resp B/P Pulse Ox O2 Delivery O2 Flow Rate FiO2 10/04/16 04:48 97.7 94 20 138/64 95 Physical Exam Const: Obese, no acute distress Head: Atraumatic Eyes: Normal Conjunctiva ENT: Normal External Ears, Nose and Mouth. Neck: Full range of motion..~ No meningismus. Resp: Clear to auscultation bilaterally. No absent breath sounds. No wheezing. Cardio: Regular rate and rhythm, no murmurs Abd: Soft, non tender, non distended. Normal bowel sounds Skin: No petechiae or rashes Back: No midline or flank tenderness Ext: No cyanosis, or edema Neur: Awake and alert Psych: Normal Mood and Affect Results 24 hrs Current Medications Medications (Trade) Dose Ordered Sig/Renetta Route PRN Reason Start Time Stop Time Status Last Admin Dose Admin Acetaminophen/ Hydrocodone Bitart (Cooter (5/325)) 1 tab ONCE ONCE PO 10/04/16 06:30 10/04/16 06:31 DC 10/04/16 06:21 Procedures/MDM This is a 26-year-old female who presents the emergency department today complaining of chest wall pain for the past several days. Patient was seen here in the emergency department on September 26 for pain complaints, vomiting and gastroparesis. Patient abuses marijuana daily. Patient did have a psych eval done at that time was given a prescription for Lexapro. Upon further questioning patient is unsure if she is taking that medication as she lives with her mom and her mom gives her her medicine. Patient returned on October 02, 2016 for chest pain and a chest x-ray was done at that time that showed a focal right lower lung infiltrate. Patient had been admitted for pain however she left AGAINST MEDICAL ADVICE. I did ask the patient why she left AGAINST MEDICAL ADVICE and she indicated that she needed to get to work. Upon review of her psych eval it had indicated that patient does not work or go to school. 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 Ordoñez rate [address] elevation. No QT prolongation. Normal sinus rhythm. Low suspicion for acute DE, PE, pericarditis Low suspicion for worsening pneumonia, PE, abscess, pleural effusion. Of note patient was seen on August 19 and August 22 and had a negative CT chest on August 19 Patient symptoms at this time is consistent with chest wall pain likely secondary to pneumonia versus anxiety versus drug-seeking behavior versus costochondritis versus GERD I discussed with Dr. Pitts about the need for repeating a chest x-ray given that only 2 days have elapsed since her last chest x-ray and he did not feel that this would be beneficial or provide any additional information. Patient has no absent breath sounds on physical exam. She is not tachycardic. Her oxygen saturation is 95. It does not appear that her pneumonia would be worsening and again upon review of patient's psych records it was noted that patient pain always resolved with narcotic medication. I again discussed this with Dr. Pitts came to the agreement to give the patient one Cooter here in the emergency department. I had asked the patient why she had not taken any pain medication and she stated that she has gastritis and cannot take any medications. I explained to the patient that Tylenol would be safe for her to take. She was discharged home with that. She was instructed to continue taking her antibiotics. At this time the patient is stable for discharge and outpatient management. Patient should follow up with their PCP in the next 1-2 days. They may return to the emergency department sooner for any persistent or worsening of symptoms. Patient understood and agreed with the plan. Departure Diagnosis: Primary Impression: Chest wall pain Condition: Fair Patient Instructions: Pneumonia (Adult) Additional Instructions: Call your primary care doctor TOMORROW for an appointment during the next 1-2 days.See the doctor sooner or return here if your condition worsens before your appointment time. Continue taking her antibiotics as prescribed Take Tylenol for pain GWEN GERONIMO PA-C Oct 04, 2016 07:39
== END 2016-10-04 06:35 | disposition home or self-care (01) ==
LOC: FTE 04:45
DX: R07.89 Other chest pain (principal); F17.210 Nicotine dependence, cigarettes, uncomplicated; E66.9 Obesity, unspecified; Z68.39 Body mass index [BMI] 39.0-39.9, adult
CPT/HCPCS: 93005

== ENCOUNTER 2016-10-09 06:48 | Emergency (ER) | payer BC ==
[~2016-10-09] VITALS: Ht 160 cm; Wt 99.0 kg
[~2016-10-09 06:48] MED LIST changes: +ACET500C5 PO
[2016-10-09 06:49] VITALS: Ht 160 cm; Wt 99.0 kg
[2016-10-09] MEDS ORDERED: ONDANSETRON (ODT) 4 MG TAB ODT STA (07:05)
[2016-10-09] MEDS ORDERED: ONDANSETRON (ODT) 4 MG TAB ODT ONE (07:07)
[2016-10-09] MEDS ORDERED: ONDA4TAB14 PO (07:08)
[2016-10-09] MEDS ORDERED: OLANZAPINE (ODT) 5 MG TAB ODT ONE (07:30)
[2016-10-09] MEDS ORDERED: HYDROCODONE/APAP (10/325) TAB PO ONE (07:30)
--- NOTE | 2016-10-09 07:47 | RADRPT ---
PROCEDURE: XR Chest. CLINICAL INDICATION: chest pain TECHNIQUE: Single frontal view of the chest was obtained COMPARISON: 11/15/2014 FINDINGS: The heart and mediastinum are within normal limits. The lungs are clear. There is no pleural effusion or pneumothorax. RPTAT: AA IMPRESSION: No acute disease. .Mark Rebollar MD, MD Date Time Electronically viewed and signed by .Mark Rebollar MD, MD on 10/09/2016 07:47 .S/
--- NOTE | 2016-10-09 07:50 | ERD ---
ER Documentation Chief Complaint Date/Time DATE: 10/09/16 TIME: 07:49 Chief Complaint vomitting, per mom not stopped since she left HPI Patient is a 26-year-old female with gastroparesis and GERD presents with chest pain. She says that her chest pain started a couple of days ago. She has vomiting as well. She tried Adel with no help. She has no fevers. She does have a cough. She saw her primary doctor on Saturday. The mother says "every day is like this". She saw her psychiatrist yesterday who prescribed "some medications". Upon review of old medical records this is the patient's ninth visit to the ER since 2014. Review of the emergency department information exchange system shows visits to 2 separate emergency departments. She does not have a pain management doctor. ROS All systems reviewed and are negative except as per history of present illness. Medications Home Meds Active Scripts Ondansetron (Ondansetron Odt) 4 Mg Tab.rapdis, 4 MG PO Q6H Y for NAUSEA AND/OR VOMITING, #30 TAB Prov:FELICIANO ABREU MD 10/09/16 Acetaminophen* (Tylophen*) 500 Mg Capsule, 1 CAP PO Q6H Y for PAIN AND OR ELEVATED TEMP, #30 CAP Prov:GWEN GERONIMO PA-C 10/04/16 Hyoscyamine Sulfate* (Hyoscyamine Sulfate*) 0.125 Mg Tab.subl, 0.125 MG SL Q4H Y for abd pain and cramping, #14 TAB Prov:CARLOS DRAKE 10/02/16 Aripiprazole* (Abilify*) 2 Mg Tablet, 2 MG PO DAILY, #30 TAB Prov:CARLOS DRAKE M. 10/02/16 Pantoprazole* (Pantoprazole*) 40 Mg Tablet.dr, 40 MG PO BID WITH MEALS for 30 Days, TAB Prov:CARLOS DRAKE. 10/02/16 Tramadol HCl (Tramadol HCl) 50 Mg Tablet, 50 MG PO Q6 Y for PAIN, #18 TAB Prov:CARLOS DRAKE. 10/02/16 Lactobacillus Rhamnosus* (Culturelle*) 1 Each Cap.sprink, 1 CAP PO BID for 7 Days, CAP Prov:CARLOS DRAKE 10/02/16 Levofloxacin* (Levaquin*) 750 Mg Tablet, 750 MG PO DAILY for 7 Days, TAB Prov:CARLOS DRAKE M. 10/02/16 Reported Medications Ezabtk-Tlokwqjy-Cwuxcxg* (Gaston MORTON* 36,000) 36,000 L-114,000-180,000 Unit Capsule.dr, 1 CAP PO AC MEALS, #900 10/02/16 Ondansetron Hcl* (Ondansetron Hcl*) 8 Mg Tablet, 8 MG PO TID Y for NAUSEA AND OR VOMITING, TAB 09/30/16 Sucralfate* (Carafate*) 1 Gm/10 Ml Susp, 1 GM PO QHS, EA 09/30/16 Lorazepam* (Lorazepam*) 0.5 Mg Tablet, 0.5 MG PO HS Y for ANXIETY, TAB 09/30/16 Melatonin (Melatonin) 5 Mg Tablet, 5 MG PO HS, TAB 09/30/16 Escitalopram Oxalate* (Escitalopram Oxalate*) 10 Mg Tablet, 10 MG PO QHS, #30 TAB 09/30/16 Erythromycin Stearate (Erythromycin Stearate) 250 Mg Tablet, 250 MG PO QID, TAB 09/30/16 Allergies Allergies: Coded Allergies: No Known Allergy (Unverified , 10/02/16) PMhx/Soc Medical and Surgical Hx: pt denies Medical Hx History of Surgery: Yes (gall bladder removed 2 years ago) Anesthesia Reaction: No Hx Neurological Disorder: No Hx Respiratory Disorders: No Hx Cardiac Disorders: No Hx Psychiatric Problems: Yes (Depression and anxiety) Hx Miscellaneous Medical Probl: No Hx Alcohol Use: No Hx Substance Use: Yes (Marijuana) Hx Tobacco Use: Yes (4 cigarrettes a day) Smoking Status: Current every day smoker FmHx Family History: No diabetes Physical Exam Vitals Vital Signs Date Time Temp Pulse Resp B/P Pulse Ox O2 Delivery O2 Flow Rate FiO2 10/09/16 06:49 99.1 99 22 207/98 98 Physical Exam Const: Moderate distress secondary to pain, tearful Head: Atraumatic Eyes: Normal Conjunctiva ENT: Normal External Ears, Nose and Mouth. Neck: Full range of motion..~ No meningismus. Resp: Clear to auscultation bilaterally Cardio: Regular rate and rhythm, no murmurs Abd: Soft, non tender, non distended. Normal bowel sounds Skin: No petechiae or rashes Back: No midline or flank tenderness Ext: No cyanosis, or edema Neur: Awake and alert Psych: Patient has a histrionic affect, she is persistently crying Results 24 hrs Current Medications Medications (Trade) Dose Ordered Sig/Renetta Route PRN Reason Start Time Stop Time Status Last Admin Dose Admin Acetaminophen/ Hydrocodone Bitart (Adel (10/325)) 1 tab ONCE ONCE PO 10/09/16 07:30 10/09/16 07:31 DC 10/09/16 07:17 Ondansetron HCl (Zofran Odt) 4 mg ONCE STAT ODT 10/09/16 07:05 10/09/16 07:07 DC 10/09/16 07:07 Olanzapine (Zyprexa Zydis) 5 mg ONCE ONCE ODT 10/09/16 07:30 10/09/16 07:31 DC 10/09/16 07:17 Procedures/MDM EKG read by me: Rate/Rhythm: Regular rate and rhythm at a rate of 83 Intervals: Normal Impression: No evidence of ischemia or arrhythmia Chest x-ray negative per radiology. Smoking Cessation Therapy: Pt. was lectured for greater than 3 minutes on the health risks of continued smoking and the benefits of cessation. Patient is a 26-year-old female with gastroparesis who presents with chest pain and vomiting. I believe this is likely her chronic gastroparesis and chronic pain. Her EKG and chest x-ray are negative and I doubt acute coronary syndrome , pneumothorax, pneumonia, pulmonary embolism, or aortic dissection. I believe outpatient management is appropriate. She was requesting IV pain medications and I told her that for chronic pain will not give IV or IM pain medications as is our process and policy here at [facility]. The patient will need to follow-up with a pain management doctor and I will give her information for Dr. Keene. She did not give us a urine sample and the mother wanted to leave prior to a test being checked. The patient can return for any worsening symptoms. Departure Diagnosis: Primary Impression: Chest pain Chest pain type: unspecified Qualified Code: R07.9 - Chest pain, unspecified type Additional Impression: Vomiting Vomiting type: unspecified Vomiting Intractability: non-intractable Nausea presence: with nausea Qualified Code: R11.2 - Non-intractable vomiting with nausea, unspecified vomiting type Condition: Fair Patient Instructions: Chest Pain, Uncertain Cause, Vomiting (6Y-Adult) Referrals: CORNELL KEENE Additional Instructions: SPECIALIST: YOU HAVE A MEDICAL CONDITION WHICH REQUIRES YOU TO SEE A SPECIALIST WITHIN THE NEXT 1-2 DAYS. PLEASE FOLLOW UP WITH YOUR PRIMARY PHYSICIAN FOR REFFERAL.IF YOU DO NOT HAVE A PRIMARY CARE PHYSICIAN AND/OR YOU CAN NOT AFFORD TO SEE A PHYSICIAN THE FOLLOWING RESOURCES HAVE BEEN SUPPLIED TO YOU. IT IS YOUR RESPONSIBILITY TO BE SEEN BY THE SPECIALIST FELICIANO ABREU MD Oct 09, 2016 07:49
== END 2016-10-09 07:48 | disposition home or self-care (01) ==
LOC: E/R 06:48
DX: R07.9 Chest pain, unspecified (principal); R11.2 Nausea with vomiting, unspecified; F17.210 Nicotine dependence, cigarettes, uncomplicated
CPT/HCPCS: 71010; 93005